=== PATIENT | female | born 1980 | race Caucasian/White ===

== ENCOUNTER 2019-11-04 14:27 | Emergency (ER) | payer OTHER, SELFPAY ==
--- NOTE | ~2019-11-04 | XR_ITS ---
EXAMINATION: XR hand RT min 3V INDICATION: Right second finger pain, initial encounter TECHNIQUE: Three views of the right hand are obtained. COMPARISON: None available FINDINGS: There is traumatic amputation of the distal soft tissues of the second finger distal to the distal phalanx. On the PA view, there appears to be a tiny fracture at the medial margin of the dist al tuft. The joint spaces are normal. No additional osseous findings are evident. IMPRESSION: 1. Soft tissue defect of the distal second finger with possible tiny open fracture of the tuft. Reviewed, dictated and finalized at location A. IMPRESSION: 1. Soft tissue defect of the distal second finger with possible tiny open fract ure of the tuft.
[2019-11-04 14:30] VITALS: BP 178/93; PULSE 100; RESP 22; TEMP 36.7; O2SAT 96
--- NOTE | 2019-11-04 14:32 | ED.ANIMALBIT ---
HPI - Animal Bite General Chief Complaint: Animal Bite Stated Complaint: Fingertip bitten off Time Seen by Provider: 11/04/19 14:32 Source: patient Mode of arrival: ambulatory Limitations: no limitations History of Present Illness HPI narrative: 39-year-old woman comes in today complaining of a dog bite to right index finger. Patient states that she was helping the dog and went to pet him and he bit the tip of her index finger off. This happened approximately 30 minutes prior to arrival. 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 Patient's last tetanus vaccine was 07/2012. complaint: animal bite Onset (ago): minute(s) (30) Animal: dog Description of animal: household pet and immunizations UTD Mechanism: bite Location: other (hand) Location - Extremities: Right: hand (index finger) Pain description: sharp Context: other (While petting dog) Treatments prior to arrival: wound dressing(s) Related Data Patient tetanus UTD: No Home Medications Medication Instructions Recorded Confirmed melatonin 5 mg PO HS PRN 11/04/19 11/04/19 metoprolol succinate 25 mg PO DAILY 11/04/19 11/04/19 venlafaxine [Effexor XR] 150 mg PO DAILY 11/04/19 11/04/19 Allergies Allergy/AdvReac Type Severity Reaction Status Date / Time No Known Allergies Allergy Unverified 03/22/18 15:32 Review of Systems Constitutional: Constitutional: Denies chills and Denies fever(s) ENT: Denies dysphagia, Denies nasal congestion and Denies sore throat Cardiovascular: Cardiovascular: Denies chest pain and Denies radiating jaw, neck or arm pain Respiratory: Respiratory: Denies chest congestion and Denies cough Gastrointestinal: Gastrointestinal: Denies abdominal pain, Denies nausea and Denies vomiting Integumentary/Breasts: Skin/Breast: Denies pruritus, Denies erythema and Denies rash Neurologic: Denies vertigo, Denies dizziness and Denies syncope Hematologic/Lymphatic: Hematologic/Lymphatic: Denies easy bleeding and Denies easy bruising Allergic/Immunologic: Allergic/Immunologic: Denies lip swelling and Denies wheezing PMFSH Past Medical History Medical History Anxiety Vaginal delivery x 3 Surgical History Surgical History H/O LEEP History of endometrial ablation History of robot-assisted laparoscopic hysterectomy History of tubal ligation Family History Family History (Updated 10/05/14 @ 09:44 by DOCTOR UNKNOWN) Father Hypertension Family history of elevated blood lipids Mother Hypertension Family history of elevated blood lipids Grandparent Diabetes mellitus Other Family history of cardiovascular disease Family history of kidney disease Family history of malignant neoplasm Social History Social History Smoking status: Light tobacco smoker Second hand tobacco smoke exposure: Yes Smoking end date: 05/18/11 Alcohol intake: never Exam Const: General: healthy appearing and alert Orientation/consciousness: patient oriented x3 Limitations: no limitations Other: Moderate acute distress HENMT: Head: normal to inspection Eyes: Conjunctivae: conjunctivae normal Pupils: Equal, round and reactive pupils present EOM: EOMs intact bilaterally Skin: General skin exam: normal color, no jaundice and no pallor Rashes: no rashes Neuro: General: patient oriented x3, moves all extremities, no focal motor deficits and CN's II-XI intact bilaterally Speech: normal speech Gait exam (Neuro): Normal gait present Extrem: General: no clubbing, cyanosis or edema Other: 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 No bone exposed. Psych: Appearance: grossly normal and well kempt Mental Status: mental status grossly normal Affect: normal affect Attitude: cooperative Thought content: Yes Normal thought content present
[2019-11-04] MEDS: TETANUS,DIPHTHERIA,AC PERTUSSIS ADULT 0.5 ML (ADACEL) IM (14:42)
[2019-11-04 15:30] VITALS: RESP 17
== END 2019-11-04 15:30 | disposition home or self-care (01) ==
PROVIDERS: Emergency Provider Emergency Medicine
DX: S68.110A Complete traumatic metacarpophalangeal amputation of right index finger, initial encounter (principal); W54.0XXA Bitten by dog, initial encounter
CPT/HCPCS: 64450; 73130; 90471; 90715; 99283

== ENCOUNTER 2019-11-06 19:29 | Emergency (ER) | payer OTHER, SELFPAY ==
--- NOTE | 2019-11-06 19:52 | ED.WOUNDLAC ---
HPI - Wound/Laceration General Chief Complaint: Wound/Laceration Stated Complaint: Infection in finger Time Seen by Provider: 11/06/19 19:40 Source: patient Mode of arrival: ambulatory Limitations: no limitations History of Present Illness HPI narrative: 39-year-old woman comes in today complaining of pus draining from her dog bite wound on her right index finger. She noticed the pus today. It is dynamo tender and worse with movement and palpation. The pus was yellow and pink. She denies nausea, vomiting, night sweats, chills, red streaks, and asplenia. On the day of the injury x-ray showed minimal of any injury to the tuft of the distal phalanx, amputation of the distal finger at the level of the lunula, and a laceration on the dorsal aspect over the DIP. Wound was cleansed, had Surgicel placed on at this time the bleeding and was wrapped after digital block. her tetanus is updated. Onset (ago): hour(s) (2) Location: other ( Tip of right index finger) Place: home Context: other (dog bite) Related Data Home Medications Medication Instructions Recorded Confirmed melatonin 5 mg PO HS PRN 11/04/19 11/06/19 metoprolol succinate 25 mg PO DAILY 11/04/19 11/06/19 venlafaxine [Effexor XR] 150 mg PO DAILY 11/04/19 11/06/19 Allergies Allergy/AdvReac Type Severity Reaction Status Date / Time No Known Allergies Allergy Unverified 03/22/18 15:32 Review of Systems Constitutional: Constitutional: Denies chills, Denies fever(s) and Denies weakness Gastrointestinal: Gastrointestinal: Denies nausea and Denies vomiting Musculoskeletal: Musculoskeletal: Reports arthralgias Integumentary/Breasts: Skin/Breast: Denies pruritus, Denies erythema and Denies rash Neurologic: Denies focal weakness and Denies numbness Hematologic/Lymphatic: Hematologic/Lymphatic: Denies easy bleeding and Denies easy bruising PMFSH Family History Family History (Updated 10/05/14 @ 09:44 by DOCTOR UNKNOWN) Father Hypertension Family history of elevated blood lipids Mother Hypertension Family history of elevated blood lipids Grandparent Diabetes mellitus Other Family history of cardiovascular disease Family history of kidney disease Family history of malignant neoplasm Social History Social History Smoking status: Light tobacco smoker Second hand tobacco smoke exposure: Yes Smoking end date: 05/18/11 Alcohol intake: never Exam Const: Other: Mild acute distress HENMT: Head: normal to inspection Skin: General skin exam: normal color, no jaundice and no pallor Rashes: no rashes Other: As the dressing was removed from around the DIP there was a small amount of yellow thick purulent material which was cultured. A scant amount drained from the dorsal wound. There was no erythema, necrosis, or warmth. There is modest swelling to the finger at and distal to the PIP. There is no tenderness or swelling with inspection and palpation of the flexor and extensor tendons proximal to the PIP. Neuro: General: patient oriented x3, moves all extremities, no focal motor deficits and CN's II-XI intact bilaterally Speech: normal speech Extrem: General: normal to inspection and no clubbing, cyanosis or edema Psych: Appearance: grossly normal and well kempt Mental Status: mental status grossly normal Affect: normal affect Attitude: cooperative Thought content: Yes Normal thought content present Course Course Emergency Course: All of dressing was cut away except for the portion at the very end of the finger to enable inspection. Some of the dressing was soaked in sterile saline. The wound and remaining dressing was cleansed with Hibiclens and rewrapped. Clindamycin was added to her regimen in order to broaden anaerobic coverage and coverage for Capnocytophaga spp. Vital Signs Vital signs: Vital Signs Temperature 36.9 C 11/06/19 19:55 Pulse Rate 78 06
[2019-11-06 19:55] VITALS: BP 141/90; PULSE 78; RESP 18; TEMP 36.9; O2SAT 97
[2019-11-06] MEDS: CLINDAMYCIN HCL 150 MG CAP 300 MG PO (20:48)
[2019-11-06 20:59] VITALS: RESP 18; O2SAT 98
== END 2019-11-06 20:58 | disposition home or self-care (01) ==
PROVIDERS: Emergency Provider Emergency Medicine; PCP Family Medicine
DX: S68.110A Complete traumatic metacarpophalangeal amputation of right index finger, initial encounter (principal); L08.9 Local infection of the skin and subcutaneous tissue, unspecified
CPT/HCPCS: 87070; 87075; 87205; 99283; A9270

== ENCOUNTER 2019-12-26 13:01 | Outpatient (RCR) | payer OTHER, SELFPAY ==
--- NOTE | 2019-12-26 12:42 | OTOPEVAL ---
Thank you for referring Sonja Diaz to [facility]. Please review, sign, date and return this plan of care ALMA. I agree with and certify that the following plan of care is medically necessary. Referring Physician Date Admitting Provider: Attending Provider: Mason Brooks MD Referring Provider: *OT Outpatient Evaluation Start: 12/26/19 10:59 Freq: Status: Active Protocol: Document 12/26/19 10:59 [facility] (Rec: 12/26/19 11:26 [facility] [id number]) Therapy Assessment Status Assessment Status Assessment Status Evaluation Outpatient Past Medical History Cardiovascular History Hx Other Cardiac Disorders Yes: TACHYCARDIA Reproductive History Hx Hysterectomy Yes Psychosocial History Hx Anxiety Yes Hx Depression Yes Evaluation Information Problem Diagnosis R hand weakness & paresthesia Onset 11/04/19 Cause dog bite Subjective Information Patient reports that the tip Query Text:As Reported By Patient/ of her R index finger was bit Family off by a dog. Patient did not have any surgical intervention. Patient reports numbness and sensitivity on the tip of her R finger as well as decreased strength. Patient reports that it is painful to touch or use her right index finger. 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 Diagnostic Tests X-Rays For This Problem Yes Prior Level of Function Activity Level (Last 3 Months) Hand Dominance Right Activity of Daily Living Ability Independent Indoor/Home Mobility Independent Community Mobility Independent Stairs Ability Independent Functional Cognition (Planning, Shopping Independent , Taking Medications) Cooking Yes Cleaning Yes Laundry Yes Shopping Yes Driving Yes Home Setting Home Type House Living Situation With Minor Child Mobility Assistive Devices (Used Last 3 None Months) Pain Assessment Timing of Pain Assessment Timing of Pain Assessment Assessment Pain Scale Pain Scale Used Numeric (1 - 10) Self Report Pain Assessment Right Finger, Index Reported Pain Level 0 Additional Pain Comments 4/5 when touching objects Pain Score Pa
--- NOTE | 2020-01-30 11:14 | PCOTNOTE ---
OT UPDATE ON [facility] 01/30/20 Subjective:Patient reports that she is able to use her right index finger more. She also reports that the tip of the finger continues to be numb and sensitive, specifically when she hits it on something unexpectedly or bumps is. Patient reports no pain at rest. 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 Patient demonstrates increased ROM of the R PIP/DIP as well as decreased pain and increased function and strength. Patient has been issued home programming and reports/demonstrates independence. Patient continues to have sensitivity and numbness at the tip of the finger only. Patient to continue skilled OT services for 1 additional session. Plan: Patient has 1 additional OT visit on POC. Thanks, Lesly Lee OTR/L
== END 2020-02-15 16:34 | disposition home or self-care (01) ==
LOC: CHSOT 13:01
PROVIDERS: PCP Family Medicine; Visit Provider Plastic Surgery
DX: R53.1 Weakness (principal); R20.2 Paresthesia of skin; Z89.021 Acquired absence of right finger(s)
CPT/HCPCS: 97110; 97140; 97165

== ENCOUNTER 2020-10-17 15:00 | Outpatient (RCR) | payer OTHER, SELFPAY ==
--- NOTE | 2020-08-22 09:57 | OTOPEVAL ---
OCCUPATIONAL THERAPY INITIAL EVALUATION 08/22/20 Sonja is a 40 year-old, right handed female who is ~9 months s/p right index finger tip amputation. The soft tissue and nail have grown back very well. She unfortunately has some residual pain and sensitivity restricting her ability to use the right hand for ADLs. She has been instructed in desensitization, light tasks to help the finger return to habitual use, and strengthening. No treatment sessions have been scheduled as she is independent with all materials. Recommend that she follows up for a re-assessment in 1 month. Thank you for referring Sonja Diaz to [facility].? The patient is scheduled to be seen for therapy? re-evaluation in 4 weeks. No treatment sessions have been scheduled. Please review, sign, date and return this plan of care ALMA. I agree with and certify that the following plan of care is medically necessary. Referring Physician Date Referring Provider: Mason Brooks MD *OT Outpatient Evaluation Start: 08/22/20 08:36 Therapy Assessment Status Assessment Status Assessment Status Evaluation Outpatient Past Medical History Past Medical History Source of Past Medical History Patient Neurological History Hx Neurological Disorders No Significant History Cardiovascular History Hx Other Cardiac Disorders Yes: Tachycardia Respiratory History Hx Respiratory Disorders No Significant History Gastrointestinal History Hx Gastrointestinal Disorders No Significant History Genitourinary History Hx Genitourinary Disorders No Significant History Musculoskeletal History Hx Other Musculoskeletal Disorders Yes: Right IF partial amputation Hematological History Hx Hematological Disorders No Significant History Endocrine History Hx Endocrine Disorders No Significant History HEENT History Hx HEENT Disorders No Significant History Integumentary History Hx Skin Disorders No Significant History Reproductive History Hx Hysterectomy Yes Psychosocial History Hx Anxiety Yes Hx Depression Yes Pain History Has Past Pain Affected Your Daily Life Yes: Index finger Evaluation Information Problem Diagnosis Sequela of right index finger tip amputation Onset 11/04/19 Subjective Information Patient reports having OT Query Text:As Reported By Patient/ initially after the injury to Family regain ROM and they did work on desensitization, however she continues to have sensitivity on the tip of the finger, especially with reaching into her purse for objects. 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
--- NOTE | 2020-09-21 10:46 | PCOTNOTE ---
Patient called & cancelled re-evaluation this date due to breaking her foot. States she will call back to reschedule re-eval.
--- NOTE | 2020-10-17 15:41 | OTOPEVAL ---
OCCUPATIONAL THERAPY RE-EVALUATION AND D/C 10/17/20 Patient presents today for OT re-evaluation after completing index finger desensitization, strengthening, and fine motor HEP x8 weeks. Her pain has remained unchanged with moderate amounts of pain and sensitivity with index finger use, especially with tip pinching. She continues to avoid using this finger with everyday tasks and has to consciously try to use the finger. Unfortunately there has been very little progress pain and sensory-hussein. Discharging OT with goals not met. Thank you for referring Sonja Diaz to [facility]. Please review, sign, date and return this D/C Note ALMA. I agree with and certify that the following plan of care is medically necessary. Referring Physician Date Referring Provider: Mason Brooks MD *OT Outpatient Evaluation Start: 08/22/20 08:36 Evaluation Information Problem Diagnosis Sequela of right index finger tip amputation Onset 11/04/19 Additional Evaluation Detail Patient was initially evaluated on 08/22/20 for right index finger pain and sensitivity restricting her ability to use the right index finger for griping/pinching, typing, buttoning, etc. She had habitually stoped using the finger and began using the middle finger for pinching and fine motor tasks. On the initial evaluation she was instructed in desensitization, fine motor exercises, and education on learned non use and purposefully using the finger again. Regular weekly sessions were not scheduled as she was independent with all materials at the evaluation. The re-evaluation had to be rescheduled due to her breaking her foot. Today is 8 weeks since the initial evaluation. Patient reports good compliance with HEP. Subjective Information Patient reports since our Query Text:As Reported By Patient/ initial therapy evaluation she Family has been working on desensitizing, functional use, and strengthening. She feels as though the sensitivity has not changed. She has a variety of objects she has been using
== END 2020-10-18 10:55 | disposition home or self-care (01) ==
LOC: ANHOT 15:00
PROVIDERS: PCP Family Medicine; Visit Provider Plastic Surgery
DX: Z47.81 Encounter for orthopedic aftercare following surgical amputation (principal); Z89.021 Acquired absence of right finger(s)
CPT/HCPCS: 97110; 97165; 97530

== ENCOUNTER 2021-02-06 00:37 | Day surgery (SDC) | payer OTHER, SELFPAY ==
[2021-01-29 13:20] VITALS: BMI 22.6
[2021-02-06] VITALS (9 sets, daily range): BP systolic 106–116; BP diastolic 65–77; PULSE 75–104; RESP 14–16; TEMP 36.6; O2SAT 98–100; BMI 22.8
--- NOTE | 2021-02-06 07:09 | WPDHPUPDATE1 ---
History and Physical Update Update Date/Time: 02/06/21 07:09 History and Physical has been reviewed, including an updated exam of the patient. There are NO changes in the patient's condition. Risks, benefits, and alternatives have been discussed and questions answered. Patient agrees to proceed with procedure.
[2021-02-06] MEDS: LIDO 1%/EPINEPHRINE 1:100,000 50 ML VIAL INFILTRATE (15:16)
[2021-02-06] MEDS: BACITRACIN OINTMENT 15 GM TUBE 1 APPLIC TOPICAL (15:17)
--- NOTE | 2021-02-06 15:26 | SUR.OPER ---
Ebl=0
--- NOTE | 2021-02-06 15:58 | W.PM.PROC2 ---
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 The patient was taken to the operating room placed supine on the operating table. Time-out was held and confirmed. The right hand and left foot were prepped and draped in usual fashion. The left 3rd toe and the right index finger were anesthetized with 1% lidocaine with epinephrine as intrathecal block. The finger tip was carefully examined. The general problem appeared to be due to pinching and hooking of the nail bed and nail that occurred as a result of secondary healing of this tip amputation that occurred from dog bite about 1 year ago. The red tourniquet was applied to the finger. The wound was reopened with an incision transversely just palmar to the hyponychium. The wound was reopened by undermining over the remaining distal phalanx. The nail bed was released from the dorsal phalanx. This increased the dimensions of the wound about 2 mm in width and approximately 6 mm of vertically. The site was measured and the numbers transposed to the left 3rd toe. A similar size piece of full-thickness skin and subcutaneous tissue was removed from the tip of the left 3rd toe. That wound was closed with interrupted 5 0 nylon. The graft was was not thinned in any way. It was inset and sutured with interrupted 5 0 nylon. It appeared that curving of the nail bed was potentially corrected as long as the graft would support it. Antibiotic ointment and Band-Aids were applied to both sites. Patient is discharged home with instructions in wound care and follow-up. She has a prescription for cephalexin and hydrocodone. Estimated Blood Loss 0 Drains No Packing No Pathology none sent Complications No immediate complications Condition stable Disposition same day
== END 2021-02-06 16:05 | disposition home or self-care (01) ==
PROVIDERS: PCP Family Medicine; Visit Provider Plastic Surgery
PROC: (CPT 15240; principal; 2021-02-06 15:00)
DX: L60.8 Other nail disorders (principal)
CPT/HCPCS: 15240; A9270

== ENCOUNTER 2021-07-19 12:40 | Emergency (ER) | payer OTHER, SELFPAY ==
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
[2021-07-19 13:06] VITALS: BP 124/80; PULSE 81; RESP 18; TEMP 37.1; O2SAT 100
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
== END 2021-07-19 16:45 | disposition home or self-care (01) ==
LOC: ANHED 16:55
PROVIDERS: Emergency Provider Emergency Medicine; PCP Family Medicine
DX: S89.92XA Unspecified injury of left lower leg, initial encounter (principal); F41.9 Anxiety disorder, unspecified; F32.A Depression, unspecified; F17.210 Nicotine dependence, cigarettes, uncomplicated; V49.40XA Driver injured in collision with unspecified motor vehicles in traffic accident, initial encounter
CPT/HCPCS: 73502; 73562; 99284

== ENCOUNTER 2025-04-05 10:32 | Emergency (ER) | payer OTHER, SELFPAY ==
--- OUTSIDE RECORDS SUMMARY | 2024-12-29 10:15 | XMS_ITS ---
Author Organization [facility] [employer] Address [facility] [facility] [address] [place] [address] Care Team Providers Care Director Of Corporate Sales Name Role Phone Evette KING, Christine Primary Care Provider Unavaila Andrea Schaffer Unavailable [phone] REASON FOR VISIT 3 month f/u Social History Sex Assigned At : Social History Observation Description Sex Assigned At Female Encounters Encounter Location Date Provider Diagnosis [facility] [employer] [place] [id number] [facility] [address] [facility] [address] [place] [address] 12/29/2024 Andrea Ribeiro Plan Of Treatment No Information Progress Notes * FRANCHESKA DE LA CRUZB: 9[birth year] (45 yo F)Acc No.[id number]:12/29/2024 Patient: CAPRI EVANS Provider: Jack RIBEIRO MD :1980 A ge:44 Y S ex:Female Date:12/29/2024 Address:[address] [place], [place] [id number] Pcp:Christine Alas NP Subjective: * Chief Complaints: * 3 month f/u * Active Problem List F90.9 Attention-deficit hy peractivity disorder, unspecified type Onset Date:08/13/2023Modified On:11/11/2023W/U Status:confirmed F41.1 Generalized anxiety disorder Onset Date:08/13/2023Modified On:11/11/2023W/U Status:confirmed F51.01 Primary insomnia Onset Date:08/13/2023Modified On:11/11/2023W/U Status:confirmed F33.1 Major depressive dis order, recurrent, moderate Modified On:12/29/2024/U Status:confirmed G93.32 Fatigue, chronic, sy ndrome Modified On:02/08/2025U Status:confirmed * Electronic signature of Yanira Ribeiro MD on 04/05/2025 at 03:16 PM MANAGER SALES Sign off status: Pending * Provider: Jack RIBEIRO MD Date: 0 12/29/2024 Generated for Velia dunn/Aj/Dalilaitting on: 06/05/2024 03:16 PM MANAGER SALES
--- NOTE | 2025-04-05 10:36 | ED_ITS ---
HPI - URI/Sore Throat General Chief Complaint: Upper Respiratory Infection Stated Complaint: sinus/URI Time Seen by Provider: 04/05/25 10:36 Source: patient Mode of arrival: ambulatory Limitations: no limitations History of Present Illness HPI Narrative: Ivana is a 45-year-old female patient presenting to the clinic today with complaints of nasal congestion, sinus headache, cough, nausea, body aches, feeling weak, and dizziness x 2 days Rates pain 5/10. Denies any sore throat. She reports has taken Aleve and Sudafed for her symptoms. Denies any chest pain or shortness of breath. Related Data Home Medications ?Medication ?Instructions ?Recorded ?Confirmed ?Last Taken ?Type trazodone 100 mg tablet 100 mg PO QHS PRN Insomnia 0 11/13/20 01/29/21 Unknown History vilazodone 40 mg tablet (Viibryd) 40 mg PO DAILY 01/30 Unknown History dextroamphetamine-amphetamine 10 10 mg PO DAILY Unknown History mg tablet (Adderall) atomoxetine 25 mg capsule mg PO 04/05/25 Unknown Hist ory Allergies Allergy/AdvReac Type Severity Reaction Status Date / Time No Known Allergies Allergy Verified 04/05/25 10:51 Review of Systems Review of Systems: Pertinent positives per HPI. Patient denies any fever, chills, rash, headache, visual changes, dizziness, cough, shortness of breath, chest pain, palpitations, nausea, vomiting, diarrhea, constipation, abdominal pain, or any urinary issues. PMFSH Past Medical History Medical History History of anesthesia problem Depression Wears glasses Unintentional weight loss Fracture of toe of left foot Endometriosis determined by laparoscopy 05-30-15, surgery to remove History of abnormal cervical Pap smear Tachycardia Cigarette nicotine dependence Anxiety Vaginal delivery x 3 Surgical History Surgical History History of cholecystectomy History of bilateral salpingectomy 03-31-18 History of robot-assisted laparoscopic hysterectomy 03-31-18 History of tubal ligation 05-30-15 H/O LEEP History of endometrial ablation 05-30-15 Family History Family History Father Hypertension Family history of elevated blood lipids Mother Hypertension Family history of elevated blood lipids Grandparent Diabetes mellitus Other Family history of cardiovascular disease Family history of kidney disease Family history of malignant neoplasm Heart disease Lung disease Ovarian cancer Social History Social History Smoking packs per day: 0.5 Smoking cigarettes per day: 10.0 Years smoked: 20 Smoking pack-years: 10.00 Smoking status: Current every day smoker Tobacco type: cigarettes Additional smoking assessment comments: trying to quit. She is down to 2a day for approx 3wks now-as of 09/26/20 Alcohol intake: current Alcohol use details: approx 6 per month Living arrangements: with family Occupation/Education: occupation Additional occupation/education comments: [employer] Gender identity (if verbalized by the patient): Female Spiritual care concerns: No Comments At the time of my signature, I reviewed and agree with the nursing past medical, surgical, social, and family history. There is no relevant family history pertinent to the patient complaint. Exam Narrative: General: Well-developed, well nourished, in no apparent distress Head: Normocephalic, atraumatic Eyes: Pupils equally round and reactive to light bilaterally, EOM intact, sclera and conjunctive clear, no discharge, lids normal Ears: TMs intact and congested, ear canals clear, no drainage, grossly hearing normal. Nose: Nares patent, clear nasal discharge, no inflammation, no sinus tenderness. Mouth: Oral pharynx without lesions or masses, good dentition, MMM. Neck: Supple, trachea midline, no enlargement of anterior or posterior cervical nodes, no thyroid masses or goiter palpable. Cardio: Regular rate and rhythm, s1 and s2 normal, no murmur appreciated. Resp: Clear to auscultation bilaterally, no rhonchi, rales, wheezing or rubs Course Course Emergency Course: Portions of this record may have been created with voice recognition software. Level of Care: Express Care Visit Vital Signs Vital signs: Vital Signs Temperature 36.4 C 04/05/25 10:43 Pulse Rate 97 04/05/25 10:43 Respiratory Rate 18 04/05/25 10:43 Blood Pressure 111/92 H 04/05/25 10:43 Pulse Oximetry 100 04/05/25 10:43 Oxygen Delivery Room Air 04/05/25 10:43 Temperature 36.4 C 04/05/25 10:43 Pulse Rate 97 04/05/25 10:43 Respiratory Rate 18 04/05/25 10:43 Blood Pressure 111/92 H 04/05/25 10:43 Pulse Oximetry 100 04/05/25 10:43 Oxygen Delivery Room Air 04/05/25 10:43 Vital signs reviewed MDM - URI/Sore Throat MDM Narrative Medical decision making narrative: At the time of visit patient is resting comfortably on the exam table. Patient appears to be nontoxic. Complaints of nasal congestion, sinus headache, cough, nausea, body aches, feeling weak, and dizziness x 2 days Rates pain 5/10. Denies any sore throat. She reports has taken Aleve and Sudafed for her symptoms. Denies any chest pain or shortness of breath. On exam patient has bilateral TMs intact and congested, clear nasal drainage, mild anterior turbinate inflammation, oropharynx normal, no cervical lymphadenopathy, lung sounds are clear, heart rates regular rate rhythm, vital signs stable. COVID and influenza testing was ordered Labs: COVID and influenza testing was performed and negative in the clinic today. Plan: I suspect patient has URI/viral syndrome. No sign of bacterial infection in the clinic today. Work note was given. Supportive measures were discussed with the patient and they voiced understanding discharge instructions and agrees to treatment plan. Return precautions reviewed Differential Diagnosis Differential diagnosis: Likely upper respiratory infection, otitis media, sinusitis, viral infection, bronchitis, influenza, pharyngitis and other (COVID) Discharge Plan Discharge Clinical Impression: Acute viral syndrome URI (upper respiratory infection) Qualifiers: URI type: unspecified URI Qualified Code(s): J06.9 - Acute upper respiratory infection, unspecified Patient Disposition: Home Condition: Stable Instructions: Antibiotic Form, Viral Syndrome (ED), Cold Symptoms (ED) Additional Instructions: Covid and influenza testing was negative in the clinic today. Increase fluids and stay well hydrated May take Tylenol or motrin as directed on bottle for pain/fever May use Flonase 1 spray in each nare daily May take OTC antihistamines such as Zyrtec or Claritin daily as directed on bottle May apply Vicks vapor rub to chest to open sinuses Sinus rinses for congestion Cepacol spray, cough drops, throat lozenges, warm tea with honey/lemon, gargle salt water to soothe throat BRAT diet for diarrhea Clear liquids x 24 hours then advance as tolerated for nausea/vomiting Go to the ED if you develop a worsening in your condition- high fever not controlled by Tylenol or Motrin, dehydration, weakness, lethargy, shortness of breath, or chest pain. Follow up with your PCP in 3-5 days if symptoms persist. Patient Language: Moldovan Prescriptions: No Action atomoxetine 25 mg capsule PO trazodone 100 mg tablet 100 mg PO QHS PRN (Reason: Insomnia) vilazodone [Viibryd] 40 mg tablet 40 mg PO DAILY Rx Instructions: must administer with a meal/food dextroamphetamine-amphetamine [Adderall] 10 mg tablet 10 mg PO DAILY metoprolol tartrate 25 mg tablet 25 mg PO DAILY PRN (Reason: tachycardia) Qty: 90 3RF metoprolol succinate 25 mg tablet extended release 24 hr See Rx Instructions .ROUTE .COMPLEX Qty: 90 2RF Dose Instruction: TAKE 1 TABLET BY MOUTH DAILY Rx Instructions: TAKE 1 TABLET BY MOUTH DAILY Follow-up/Referrals: Valdez Santa DO [Primary Care Provider, Family Practice] Stand Alone Forms: Work/School Release IP Time of Disposition: 11:10 Quality NIHSS Nursing Documentation ED NIHSS nursing documentation: reviewed/agree
[2025-04-05 10:43] VITALS: BP 111/92; PULSE 97; RESP 18; TEMP 36.4; O2SAT 100
[2025-04-05 11:15] LABS: EDCOVIDSCREEN Negative (Negative); EDINFLUASCREEN Negative (Negative); EDINFLUBSCREEN Negative (Negative)
--- OUTSIDE RECORDS SUMMARY | 2025-04-05 15:14 | XMS_ITS | Encounter Summary ---
Author Organization [facility] Address 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
--- OUTSIDE RECORDS SUMMARY | 2025-04-05 15:14 | XMS_ITS | Encounter Summary ---
Author Organization [facility] Address [address] [place] [address] Care Team Providers Care Data Security Analyst Name Role Phone Otoniel Amaya MD Primary Care Provider [phone] Encounter Details Date Type Department Care Team (Late st Contact Info) Description 04/27/2006 Outpatient Historical [facility] Primary Care - [place] 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
--- OUTSIDE RECORDS SUMMARY | 2025-04-05 15:14 | XMS_ITS | Encounter Summary ---
Author Organization [facility] Address [address] [place] [address] Care Team Providers Care Teaching Fellow Name Role Phone Otoniel Amaya MD Primary Care Provider [phone] Encounter Details Date Type Department Care Team (Late st Contact Info) Description 05/29/2006 Outpatient Historical [facility] Primary Care - [place] [address] [facility] [place] [place] [address] Martin Pacheco, DO * Social History Tobacco Use Types Packs/Day Years Used Date Smoking Tobacco: Never Assessed Comments Unknown Sex and Gender Information Value Date Recorded Sex Assigned at Not on file Legal Sex Female 3:02 AM WOUND NURSE Gender Identity Not on file Sexual Orientation Not on file documented as of this encounter Plan of Treatment Not on file documented as of this encounter Visit Diagnoses Not on filedocumented in this encounter Care Teams Teaching Fellow Relationship Specialty Start Date End Date Otoniel Amaya MD [address] [facility] [address] [place] [address] PCP - General 01/09/09 documented as of this encounter
--- OUTSIDE RECORDS SUMMARY | 2025-04-05 15:14 | XMS_ITS | Encounter Summary ---
Author Organization [facility] Address [address] [place] [address] Care Team Providers Care Air Export Coordinator Name Role Phone Otoniel Amaya MD Primary Care Provider [phone] Encounter Details Date Type Department Care Team (Late st Contact Info) Description 01/15/2005 Outpatient Historical [facility] Primary Care - [place] [address] [facility] [place] [address] Martin Pacheco, DO * Social History Tobacco Use Types Packs/Day Years Used Date Smoking Tobacco: Never Assessed Comments Unknown Sex and Gender Information Value Date Recorded Sex Assigned at Not on file Legal Sex Female 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
--- OUTSIDE RECORDS SUMMARY | 2025-04-05 15:14 | XMS_ITS | Clinical Summary ---
Author Organization [facility] Address [address] [place] [address] Phone Care Team Providers Care Business Center Attendant Name Role Phone Otoniel Amaya MD Primary Care Provider [phone] Allergies No known active allergies Medications ALPRAZolam (XANAX) 0.25 mg Oral tablet Take 1 Tab by mouth nightly as needed for Anxiety. 20 Tab 0 10/03/2011 Active escitalopram (LEXAPRO) 10 mg tabletIndicatio ns:Major depression,Gene ralized anxiety disorder Take 1 Tab by mouth daily. 30 Tab 6 10/04/2013 Active busPIRone (BUSPAR) 15 mg TabletIndicatio ns:Generalized anxiety disorder Take 1 Tab by mouth 2 times daily. 60 Tab 0 10/07/2013 Active Active Problems Problem Noted Date Diagnosed Date Generalized anxiety disorder 02/13/2009 Social History Tobacco Use Types Packs/Day Years Used Date Smoking Tobacco: Every Day Smokeless Tobacco: Never Alcohol Use Standard Drinks/Week Comments Yes 0 (1 standard drink = 0.6 oz pur e alcohol) Comments No Sex and Gender Information Value Date Recorded Sex Assigned at Not on file Legal Sex Female 3:02 AM ROOFING SALES REPRESENTATIVE Gender Identity Not on file Sexual Orientation Not on file Last Filed Vital Signs Vital Sign Reading Time Taken Comments Blood Pressure 122/70 05/28/2013 9:26 AM ROOFING SALES REPRESENTATIVE Pulse 82 05/28/2013 9:26 AM ROOFING SALES REPRESENTATIVE Temperature 36.8 C (98.3 F) 05/28/2013 9:26 AM ROOFING SALES REPRESENTATIVE Respiratory Rate 16 10/06/2011 11:13 AM CDT Oxygen Saturation - - Inhaled Oxygen Concentration - - Weight 65 kg (143 lb 6.4 oz) 05/28/2013 9:26 AM ROOFING SALES REPRESENTATIVE Height 167.6 cm (5' 6) 05/28/2013 9:26 AM ROOFING SALES REPRESENTATIVE Body Mass Index 23.15 05/28/2013 9:26 AM ROOFING SALES REPRESENTATIVE Plan of Treatment Health Maintenance Due Date Last Done Comments DTAP/TDAP/TD VACCINES (1 - Tdap) 02/23/2000 HEPATITIS B VACCINES (1 of 3 - 19+ 3-dose series) 12/1999 HPV/Cotest (21-29) 2002 HPV VACCINES (1 - 3-dose SCDM series) 02/23/2008 CERVICAL CANCER SCREENING 2011 HPV/Cotest (30-65) 2011 PAP SMEAR 2011 BREAST CANCER SCREENING 2021 Preventative Visit- Commercial 05/18/2024 11/15/2003 INFLUENZA VACCINE (#1) 2024 Insurance [employer] Care Teams Business Center Attendant Relationship Specialty Start Date End Date Otoniel Amaya MD [address] [facility] [address] [place] [address] PCP - General 01/09/09
--- OUTSIDE RECORDS SUMMARY | 2025-04-05 15:14 | XMS_ITS | Encounter Summary ---
Author Organization [facility] Address 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
--- OUTSIDE RECORDS SUMMARY | 2025-04-05 15:14 | XMS_ITS | Encounter Summary ---
Author Organization [facility] Address [address] [place] [address] Care Team Providers Care Pneumatic Riveter Name Role Phone Otoniel Amaya MD Primary Care Provider [phone] Encounter Details Date Type Department Care Team (Late st Contact Info) Description 03/26/2006 Outpatient Historical [facility] Primary Care - [place] [address] [facility] [place] [address] Martin Pacheco, DO * Social History Tobacco Use Types Packs/Day Years Used Date Smoking Tobacco: Never Assessed Comments Unknown Sex and Gender Information Value Date Recorded Sex Assigned at Not on file Legal Sex Female 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
--- OUTSIDE RECORDS SUMMARY | 2025-04-05 15:14 | XMS_ITS | Clinical Summary ---
Author Organization [facility] Address [address] [place] [address] Care Team Providers Care Paper And Pulp Mill Operator Name Role Phone ChristaloveValdezh Primary Care Provider Allergies No known active allergies Medications venlafaxine XR (EFFEXOR-XR) 150 mg 24 hr capsule Take 150 mg by mouth daily 10/29/2020 Active metoprolol tartrate (LOPRESSOR) 25 mg immediate release tablet as needed 11/13/2020 Acti ve traZODone (DESYREL) 100 mg tablet nightly 11/09/2020 Active metoprolol XL (TOPROL-XL) 25 mg extended release tabletIndicatio ns:Other cardiac arrhythmia Take 0.5 tablets (12.5 mg total) by mouth daily 11/14/2020 Active ivabradine (CORLANOR) 5 mg tabletIndicatio ns:chronic heart failure Take 1 tablet (5 mg total) by mouth 2 (two) times a day 180 tablet 2 02/04/2021 Active Active Problems Problem Noted Date Diagnosed Date Arrhythmia 11/14/2020 Inappropriate sinus tachycardia 11/14/2020 Shortened DE interval 11/14/2020 Surgical History Surgery Date Site/Laterality Comments HYSTERECTOMY CHOLECYSTECTOMY TUBAL LIGATION Medical History Medical History Date Comments GERD (gastroesophageal reflux disease) Anxiety and depression Inappropriate sinus tachycardia Low blood pressure Family History Medical History Relation Name Comments Cardiomyopathy Father Heart disease Father Hyperlipidemia Father Hypertension Father Pacemaker Father Sudden Cardiac Father Tachyarrhythmia Father Diabetes Maternal Grandfather Diabetes Mother Heart disease Mother Hyperlipidemia Mother Hypertension Mother Hyperlipidemia Sister 1 Hypertension Sister 1 POTS Sister 1 Two sisters who have POTS, hypertension, high cholesterol, PCOS and rheumatoid arthritis Polycystic ovary syndrome Sister 1 Hyperlipidemia Sister 2 Hypertension Sister 2 Rheumatoid arthritis Sister 2 Relation Name Status Comments Father (Age 68) Maternal Grandfather Mother Alive Sister 1 Alive Sister 2 Alive Social History Tobacco Use Types Packs/Day Years Used Date Smoking Tobacco: Every Day Cigarettes Smokeless Tobacco: Never Personal Safety Answer Date Recorded Getting School Help Needed Not on file 07/11 Comments Unknown Sex and Gender Information Value Date Recorded Sex Assigned at Not on file Legal Sex Female 10:33 AM HYSTER DRIVER Gender Identity Not on file Sexual Orientation Not on file Last Filed Vital Signs Vital Sign Reading Time Taken Comments Blood Pressure 96/80 11/14/2020 1:23 PM CDT Pulse 98 11/14/2020 1:23 PM CDT Temperature 36.6 C (97.8 F) 08/30/2020 5:39 PM CDT Respiratory Rate - - Oxygen Saturation 97% 11/14/2020 1:23 PM CDT Inhaled Oxygen Concentration - - Weight 63.5 kg (140 lb) 11/14/2020 1:23 PM CDT Height 167.6 cm (5' 6) 11/14/2020 1:23 PM CDT Body Mass Index 22.6 11/14/2020 1:23 PM CDT Plan of Treatment Not on file Insurance [employer] [facility] [employer] [employer]ANS Address: [facility] [address] [place] [address] Care Teams Paper And Pulp Mill Operator Relationship Specialty Start Date End Date Valdez Santa DO [address] [place] [address] PCP - General 09/05/20
--- OUTSIDE RECORDS SUMMARY | 2025-04-05 15:14 | XMS_ITS | Encounter Summary ---
Author Organization [facility] Address [address] [place] [address] Care Team Providers Care Porcelain Mixer Name Role Phone Otoniel Amaya MD Primary Care Provider [phone] Encounter Details Date Type Department Care Team (Late st Contact Info) Description 02/17/2005 Outpatient Historical [facility] Primary Care - [place] [address] [facility] [phone] Martin Pacheco, DO * Social History Tobacco Use Types Packs/Day Years Used Date Smoking Tobacco: Never Assessed Comments Unknown Sex and Gender Information Value Date Recorded Sex Assigned at Not on file Legal Sex Female 3:02 AM RECREATION SUPERVISOR Gender Identity Not on file Sexual Orientation Not on file documented as of this encounter Plan of Treatment Not on file documented as of this encounter Visit Diagnoses Not on filedocumented in this encounter Care Teams Porcelain Mixer Relationship Specialty Start Date End Date Otoniel Amaya MD [address] [facility] [address] [place] [address] PCP - General 01/09/09 documented as of this encounter
--- OUTSIDE RECORDS SUMMARY | 2025-04-05 15:14 | XMS_ITS | Encounter Summary ---
Author Organization [facility] Address [address] [place] [address] Care Team Providers Care Glassware Finisher Name Role Phone Otoniel Amaya MD Primary Care Provider [phone] Encounter Details Date Type Department Care Team (Late st Contact Info) Description 01/07/2006 Outpatient [facility] Primary Care [address] [phone] Martin Pacheco, DO * Social History Tobacco Use Types Packs/Day Years Used Date Smoking Tobacco: Never Assessed Comments Unknown Sex and Gender Information Value Date Recorded Sex Assigned at Not on file Legal Sex Female 3:02 AM PROGRESS CLERK Gender Identity Not on file Sexual Orientation Not on file documented as of this encounter Plan of Treatment Not on file documented as of this encounter Procedures Procedure Name Priority Date/Time Associated Diagnosis Comments HELICOBACTER PYLORI IGM Routine 01/07/2006 7:21 PM CDT HELICOBACTER PYLORI IGG Routine 01/07/2006 7:21 PM CDT documented in this encounter Results * HELICOBACTER PYLORI IGM (01/07/2006 7:21 PM CDT) H. PYLORI IGM Negative Negative INTERF PONCHO SYSTEM H. PYLORI IGM INDEX 0.4 <0.8 Index INTERFACE SYSTEM Comment: Reference Range: <0.8 Negative 0.8-0.9 Equivocal >0.9 Positive H. pylori serology may result in false positives, especially in isolated IgM H. pylori positive patients. A Urea Breath test or stool antigen test for H. pylori should be considered if clinically indicated. This test was developed and its performance characteristics have been determined by [facility] [place], [place]. It has not been cleared or approved by the U.S. Food and Drug Administration. The FDA has determined that such clearance or approval is not necessary. Performance characteristics refer to the analytical performance of the test. Lab test performed by: [facility] [id number] [place], [place] KRISTIN WHATLEY MD 01/07/2006 7:21 PM CDT Historical Provider CHEMISTRY ORDERABLES Final R esult Performing Organization Address City/[facility] Co de Phone Number INTERFACE SYSTEM Refer to clinic/hospital department * HELICOBACTER PYLORI IGG (01/07/2006 7:21 PM CDT) H. PYLORI IGG <0.91 EIA Value INTERF PONCHO SYSTEM Comment: REFERENCE RANGE: < 0.91 NEGATIVE: NO HELICOBACTER PYLORI IGG ANTIBODY DETECTED 0.91 - 1.09 EQUIVOCAL > 1.09 POSITIVE: HELICOBACTER PYLORI IGG ANTIBODY DETECTED A POSITIVE RESULT INDICATES THAT THE PATIENT HAS ANTIBODY TO H. PYLORI. IT DOES NOT DIFFERENTIATE BETWEEN AN ACTIVE OR PAST INFECTION. THE CLINICAL DIAGNOSIS MUST BE INTERPRETED IN CONJUNCTION WITH THE CLINICAL SIGNS AND SYMPTOMS OF THE PATIENT. [facility]: [facility] [id number] [place] [address] MALINDA ENGLISH MD 01/07/2006 7:21 PM CDT Historical Provider CHEMISTRY ORDERABLES COM Fin al Result INTERFACE SYSTEM Refer to clinic/hospital department documented in this encounter Visit Diagnoses Not on filedocumented in this encounter Care Teams Glassware Finisher Relationship Specialty Start Date End Date Otoniel Amaya MD [address] [facility] [address] [place] [address] PCP - General 8/25/09 documented as of this encounter
--- OUTSIDE RECORDS SUMMARY | 2025-04-05 15:15 | XMS_ITS | Encounter Summary ---
Author Organization [facility] Address [address] [place] [address] Care Team Providers Care Passenger Solicitor Name Role Phone Otoniel Amaya MD Primary Care Provider [phone] Encounter Details Date Type Department Care Team (Late st Contact Info) Description 11/12/[address] [facility] Primary Care - [place] [address] [facility] [place] [phone] Martin Pacheco, DO * Social History Tobacco Use Types Packs/Day Years Used Date Smoking Tobacco: Never Assessed Comments Unknown Sex and Gender Information Value Date Recorded Sex Assigned at Not on file Legal Sex Female 3:02 AM COMPENSATION AND BENEFITS MANAGER Gender Identity Not on file Sexual Orientation Not on file documented as of this encounter Plan of Treatment Not on file documented as of this encounter Visit Diagnoses Not on filedocumented in this encounter Care Teams Passenger Solicitor Relationship Specialty Start Date End Date Otoniel Amaya MD [address] [facility] [address] [place] [address] PCP - General 01/09/09 documented as of this encounter
--- OUTSIDE RECORDS SUMMARY | 2025-04-05 15:15 | XMS_ITS | Encounter Summary ---
Author Organization [facility] Address [address] [place] [address] Care Team Providers Care Technician Terminal And Repeater Name Role Phone Otoniel Amaya MD Primary Care Provider [phone] Encounter Details Date Type Department Care Team (Late st Contact Info) Description 08/31/2002 Outpatient Historical [facility] Primary Care - [place] [address] [facility] [phone] Martin Pacheco, DO * Social History Tobacco Use Types Packs/Day Years Used Date Smoking Tobacco: Never Assessed Comments Unknown Sex and Gender Information Value Date Recorded Sex Assigned at Not on file Legal Sex Female 3:02 AM PROFESSOR OF BIOLOGY Gender Identity Not on file Sexual Orientation Not on file documented as of this encounter Plan of Treatment Not on file documented as of this encounter Visit Diagnoses Not on filedocumented in this encounter Care Teams Technician Terminal And Repeater Relationship Specialty Start Date End Date Otoniel Amaya MD [address] [facility] [address] [place] [address] PCP - General 01/09/09 documented as of this encounter
--- OUTSIDE RECORDS SUMMARY | 2025-04-05 15:15 | XMS_ITS | Encounter Summary ---
Author Organization [facility] Address [address] [place] [address] Care Team Providers Care Figure Refinisher And Repairer Name Role Phone Otoniel Amaya MD Primary Care Provider [phone] Encounter Details Date Type Department Care Team (Late st Contact Info) Description 07/12/2004 Outpatient Historical [facility] Primary Care - [place] [address] [place] [address] Britany Wei MD NO ADDRESS ON FILE Social History Tobacco Use Types Packs/Day Years Used Date Smoking Tobacco: Never Assessed Comments Unknown Sex and Gender Information Value Date Recorded Sex Assigned at Not on file Legal Sex Female 3:02 AM CLINICAL ASST Gender Identity Not on file Sexual Orientation Not on file documented as of this encounter Plan of Treatment Not on file documented as of this encounter Visit Diagnoses Not on filedocumented in this encounter Care Teams Figure Refinisher And Repairer Relationship Specialty Start Date End Date Otoniel Amaya MD [address] [place] [address] PCP - General 01/09/09 documented as of this encounter
--- OUTSIDE RECORDS SUMMARY | 2025-04-05 15:15 | XMS_ITS | Encounter Summary ---
Author Organization [facility] Address [address] [place] [address] Care Team Providers Care Timing Machine Operator Name Role Phone Otoniel Amaya MD Primary Care Provider [phone] Encounter Details Date Type Department Care Team (Late st Contact Info) Description 01/26/2002 Outpatient Historical [facility] Primary Care - [place] [address] [facility] [place] [address] Martin Pacheco, DO * Social History Tobacco Use Types Packs/Day Years Used Date Smoking Tobacco: Never Assessed Comments Unknown Sex and Gender Information Value Date Recorded Sex Assigned at Not on file Legal Sex Female 3:02 AM RIG MANAGER Gender Identity Not on file Sexual Orientation Not on file documented as of this encounter Plan of Treatment Not on file documented as of this encounter Visit Diagnoses Not on filedocumented in this encounter Care Teams Timing Machine Operator Relationship Specialty Start Date End Date Otoniel Amaya MD [address] [facility] [address] [place] [address] PCP - General 01/09/09 documented as of this encounter
--- OUTSIDE RECORDS SUMMARY | 2025-04-05 15:15 | XMS_ITS | Encounter Summary ---
Author Organization [facility] Address [address] [place] [address] Care Team Providers Care Repair Miller Name Role Phone Otoniel Amaya MD Primary Care Provider [phone] Encounter Details Date Type Department Care Team (Late st Contact Info) Description 05/09/1999 Outpatient Historical [facility] Primary Care - [place] [address] [facility] [place] [address] Martin Pacheco, DO * Social History Tobacco Use Types Packs/Day Years Used Date Smoking Tobacco: Never Assessed Comments Unknown Sex and Gender Information Value Date Recorded Sex Assigned at Not on file Legal Sex Female 3:02 AM SIZING SPRAYER Gender Identity Not on file Sexual Orientation Not on file documented as of this encounter Plan of Treatment Not on file documented as of this encounter Visit Diagnoses Not on filedocumented in this encounter Care Teams Repair Miller Relationship Specialty Start Date End Date Otoniel Amaya MD [address] [facility] [address] [place] [address] PCP - General 01/09/09 documented as of this encounter
--- OUTSIDE RECORDS SUMMARY | 2025-04-05 15:15 | XMS_ITS | Encounter Summary ---
Author Organization [facility] Address [address] [place] [address] Care Team Providers Care Composer Teaching Artist Name Role Phone Otoniel Amaya MD Primary Care Provider [phone] Encounter Details Date Type Department Care Team (Late st Contact Info) Description 10/20/2001 Outpatient Historical [facility] Primary Care - [place] [address] [facility] [place] [phone] Martin Pacheco, DO * Social History Tobacco Use Types Packs/Day Years Used Date Smoking Tobacco: Never Assessed Comments Unknown Sex and Gender Information Value Date Recorded Sex Assigned at Not on file Legal Sex Female 3:02 AM SWIMMING COACH Gender Identity Not on file Sexual Orientation Not on file documented as of this encounter Plan of Treatment Not on file documented as of this encounter Visit Diagnoses Not on filedocumented in this encounter Care Teams Composer Teaching Artist Relationship Specialty Start Date End Date Otoniel Amaya MD [address] [facility] [address] [place] [address] PCP - General 01/09/09 documented as of this encounter
--- OUTSIDE RECORDS SUMMARY | 2025-04-05 15:15 | XMS_ITS | Encounter Summary ---
Author Organization [facility] Address [address] [place] [address] Care Team Providers Care Rag Cutting Machine Operator Name Role Phone Otoniel Amaya MD Primary Care Provider [phone] Encounter Details Date Type Department Care Team (Late st Contact Info) Description 01/17/2003 Outpatient Historical [facility] Primary Care - [place] [address] [facility] [place] [phone] Martin Pacheco, DO * Social History Tobacco Use Types Packs/Day Years Used Date Smoking Tobacco: Never Assessed Comments Unknown Sex and Gender Information Value Date Recorded Sex Assigned at Not on file Legal Sex Female 3:02 AM DIRECTOR OF INSTITUTIONAL SALES Gender Identity Not on file Sexual Orientation Not on file documented as of this encounter Plan of Treatment Not on file documented as of this encounter Visit Diagnoses Not on filedocumented in this encounter Care Teams Rag Cutting Machine Operator Relationship Specialty Start Date End Date Otoniel Amaya MD [address] [facility] [address] [place] [address] PCP - General 01/09/09 documented as of this encounter
--- OUTSIDE RECORDS SUMMARY | 2025-04-05 15:15 | XMS_ITS | Encounter Summary ---
Author Organization [facility] Address [address] [place] [address] Care Team Providers Care Enterprise Systems Administrator Name Role Phone Otoniel Amaya MD Primary Care Provider [phone] Encounter Details Date Type Department Care Team (Late st Contact Info) Description 12/16/2001 Outpatient Historical [facility] Primary Care - [place] [address] [facility] [place] [phone] Martin Pacheco, DO * Social History Tobacco Use Types Packs/Day Years Used Date Smoking Tobacco: Never Assessed Comments Unknown Sex and Gender Information Value Date Recorded Sex Assigned at Not on file Legal Sex Female 3:02 AM PULPER TENDER Gender Identity Not on file Sexual Orientation Not on file documented as of this encounter Plan of Treatment Not on file documented as of this encounter Visit Diagnoses Not on filedocumented in this encounter Care Teams Enterprise Systems Administrator Relationship Specialty Start Date End Date Otoniel Amaya MD [address] [facility] [address] [place] [address] PCP - General 01/09/09 documented as of this encounter
--- OUTSIDE RECORDS SUMMARY | 2025-04-05 15:15 | XMS_ITS | Encounter Summary ---
Author Organization [facility] Address [address] [place] [address] Care Team Providers Care Head Of Commission Department Name Role Phone Otoniel Amaya MD Primary Care Provider [phone] Encounter Details Date Type Department Care Team (Latest Contact Info) Description 08/28/2003 Inpatient Historical [facility] Kelly Ruiz MD [address] [phone] Russ Ernst MD [address] [id number] CHLAMYDIAL LOWER TRACT (Primary Dx) Social History Tobacco Use Types Packs/Day Years Used Date Smoking Tobacco: Never Assessed Comments Unknown Sex and Gender Information Value Date Recorded Sex Assigned at Not on file Legal Sex Female 3:02 AM CORRECTION OFFICER HEAD Gender Identity Not on file Sexual Orientation Not on file documented as of this encounter Plan of Treatment Not on file documented as of this encounter Visit Diagnoses Diagnosis 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
--- OUTSIDE RECORDS SUMMARY | 2025-04-05 15:15 | XMS_ITS | Encounter Summary ---
Author Organization [facility] Address [address] [place] [address] Care Team Providers Care Break Out Man Name Role Phone Otoniel Amaya MD Primary Care Provider [phone] Encounter Details Date Type Department Care Team (Late st Contact Info) Description 11/15/2003 Outpatient Historical [facility] Primary Care - [place] [address] [place] [phone] Britany Wei MD NO ADDRESS ON FILE Social History Tobacco Use Types Packs/Day Years Used Date Smoking Tobacco: Never Assessed Comments Unknown Sex and Gender Information Value Date Recorded Sex Assigned at Not on file Legal Sex Female 3:02 AM COUNSELING CENTER DIRECTOR Gender Identity Not on file Sexual Orientation Not on file documented as of this encounter Plan of Treatment Not on file documented as of this encounter Visit Diagnoses Not on filedocumented in this encounter Care Teams Break Out Man Relationship Specialty Start Date End Date Otoniel Amaya MD [address] [place] [address] PCP - General 01/09/09 documented as of this encounter
--- OUTSIDE RECORDS SUMMARY | 2025-04-05 15:15 | XMS_ITS | Encounter Summary ---
Author Organization [facility] Address [address] [place] [address] Care Team Providers Care Cheesemaker Helper Name Role Phone Otoniel Amaya MD Primary Care Provider [phone] Encounter Details Date Type Department Care Team (Late st Contact Info) Description 03/31/2002 Outpatient Historical [facility] Primary Care - [place] [address] [facility] [place] [phone] Martin Pacheco, DO * Social History Tobacco Use Types Packs/Day Years Used Date Smoking Tobacco: Never Assessed Comments Unknown Sex and Gender Information Value Date Recorded Sex Assigned at Not on file Legal Sex Female 3:02 AM COMMERCIAL REAL ESTATE PARALEGAL Gender Identity Not on file Sexual Orientation Not on file documented as of this encounter Plan of Treatment Not on file documented as of this encounter Visit Diagnoses Not on filedocumented in this encounter Care Teams Cheesemaker Helper Relationship Specialty Start Date End Date Otoniel Amaya MD [address] [facility] [address] [place] [address] PCP - General 01/09/09 documented as of this encounter
--- OUTSIDE RECORDS SUMMARY | 2025-04-05 15:15 | XMS_ITS | Encounter Summary ---
Author Organization [facility] Address [address] [place] [address] Care Team Providers Care Grommet Machine Operator Name Role Phone Otoniel Amaya MD Primary Care Provider [phone] Encounter Details Date Type Department Care Team (Late st Contact Info) Description 04/07/2002 Outpatient Historical [facility] Primary Care - [place] [address] [facility] [phone] Martin Pacheco, DO * Social History Tobacco Use Types Packs/Day Years Used Date Smoking Tobacco: Never Assessed Comments Unknown Sex and Gender Information Value Date Recorded Sex Assigned at Not on file Legal Sex Female 3:02 AM CLOTH SHEARER Gender Identity Not on file Sexual Orientation Not on file documented as of this encounter Plan of Treatment Not on file documented as of this encounter Visit Diagnoses Not on filedocumented in this encounter Care Teams Grommet Machine Operator Relationship Specialty Start Date End Date Otoniel Amaya MD [address] [facility] [address] [place] [address] PCP - General 01/09/09 documented as of this encounter
--- OUTSIDE RECORDS SUMMARY | 2025-04-05 15:15 | XMS_ITS | Encounter Summary ---
Author Organization [facility] Address [address] [place] [address] Care Team Providers Care Passenger Locomotive Engineer Name Role Phone Otoniel Amaya MD Primary Care Provider [phone] Encounter Details Date Type Department Care Team (Late st Contact Info) Description 01/27/2003 Outpatient Historical [facility] Primary Care - [place] [address] [facility] [place] [address] Martin Pacheco, DO * Social History Tobacco Use Types Packs/Day Years Used Date Smoking Tobacco: Never Assessed Comments Unknown Sex and Gender Information Value Date Recorded Sex Assigned at Not on file Legal Sex Female 3:02 AM WIRELESS CONSULTANT Gender Identity Not on file Sexual Orientation Not on file documented as of this encounter Plan of Treatment Not on file documented as of this encounter Visit Diagnoses Not on filedocumented in this encounter Care Teams Passenger Locomotive Engineer Relationship Specialty Start Date End Date Otoniel Amaya MD [address] [facility] [address] [place] [address] PCP - General 01/09/09 documented as of this encounter
--- OUTSIDE RECORDS SUMMARY | 2025-04-05 15:15 | XMS_ITS | Encounter Summary ---
Author Organization [facility] Address [address] [place] [address] Care Team Providers Care Rn Progressive Care Unit Name Role Phone Otoniel Amaya MD Primary Care Provider [phone] Encounter Details Date Type Department Care Team (Late st Contact Info) Description 08/17/2002 Outpatient Historical [facility] Primary Care - [place] [address] [facility] [address] Martin Pacheco, DO * Social History Tobacco Use Types Packs/Day Years Used Date Smoking Tobacco: Never Assessed Comments Unknown Sex and Gender Information Value Date Recorded Sex Assigned at Not on file Legal Sex Female 3:02 AM COAL TRIMMER MACHINE OPERATOR Gender Identity Not on file Sexual Orientation Not on file documented as of this encounter Plan of Treatment Not on file documented as of this encounter Visit Diagnoses Not on filedocumented in this encounter Care Teams Rn Progressive Care Unit Relationship Specialty Start Date End Date Otoniel Amaya MD [address] [facility] [address] [place] [address] PCP - General 01/09/09 documented as of this encounter
--- OUTSIDE RECORDS SUMMARY | 2025-04-05 15:15 | XMS_ITS | Encounter Summary ---
Author Organization [facility] Address [address] [place] [address] Care Team Providers Care Genetics Teacher Name Role Phone Otoniel Amaya MD Primary Care Provider [phone] Encounter Details Date Type Department Care Team (Late st Contact Info) Description 08/29/2003 Outpatient Historical [facility] [address] [place] [phone] Kelly Ruiz MD [address] [facility] [address] [place] [address] Social History Tobacco Use Types Packs/Day Years Used Date Smoking Tobacco: Never Assessed Comments Unknown Sex and Gender Information Value Date Recorded Sex Assigned at Not on file Legal Sex Female 3:02 AM MACHINERY MOVER Gender Identity Not on file Sexual Orientation Not on file documented as of this encounter Plan of Treatment Not on file documented as of this encounter Visit Diagnoses Not on filedocumented in this encounter Care Teams Genetics Teacher Relationship Specialty Start Date End Date Otoniel Amaya MD [address] [place], [place] [address] [address] [place] [address] PCP - General 01/09/09 documented as of this encounter
--- OUTSIDE RECORDS SUMMARY | 2025-04-05 15:15 | XMS_ITS | Clinical Summary ---
Author Organization [facility] Address [address] [place] [address] Care Team Providers Care Utility Worker Film Processing Name Role Phone Unavailable Primary Care Provider Unavailabl e Source Comments [facility],non-owned Affiliates and Associated Physician Practices is amultiple site organization consisting of ambulatory clinics and hospital sitesin [place], [place], [place] and [place]. This disclosure is being madepursuant to the Care Everywhere program and may not contain all information available regarding this patient. Last updated 18.[facility] [place] Social History Tobacco Use Types Packs/Day Years Used Date Smoking Tobacco: Never Assessed Comments Unknown Sex and Gender Information Value Date Recorded Sex Assigned at Not on file Legal Sex Female 6:45 PM TIE BUYER Gender Identity Not on file Sexual Orientation Not on file Plan of Treatment Health Maintenance Due Date Last Done Comments LIPID TESTING 1981 MAMMOGRAM 1981 HIV SCREENING 02/23/1996 HEPATITIS C SCREENING 02/18/1999 DTAP/TDAP/TD VACCINES (1 - Tdap) 02/23/2000 HEPATITIS B VACCINE (1 of 3 - 19+ 3-dose series) 02/23/2000 Cervical Cancer Screening 2002 PAP SMEAR 2002 HPV VACCINE (1 - 3-dose SCDM series) 02/23/2008 PAP with HPV 2011 DEPRESSION SCREENING 05/18/2024 COVID-19 VACCINE (1 - 2024-2 6 season) 2025 INFLUENZA VACCINE (#1) 2025 ZOSTER VACCINE (1 of 2) 2031 HIB VACCINE Aged Out No longer eligi ble based on patient's age to complete this topic MENINGOCOCCAL (Group B) VACC INE SHARED DECISION-MAKING Aged Out No longer eligibl e based on patient's age to complete this topic MENINGOCOCCAL GROUPS A/C/Y/W VACCINE Aged Out No longer eligible b ased on patient's age to complete this topic PNEUMOCOCCAL VACCINE Aged Out No long er eligible based on patient's age to complete this topic Insurance [facility]
--- OUTSIDE RECORDS SUMMARY | 2025-04-05 15:15 | XMS_ITS | Encounter Summary ---
Author Organization [facility] Address [address] [place] [address] Care Team Providers Care Rn Social Work Name Role Phone Otoniel Amaya MD Primary Care Provider [phone] Encounter Details Date Type Department Care Team (Late st Contact Info) Description 08/28/2003 Outpatient Historical [facility] Adult Hospitalists [facility] [address] [place] [address] Russ Ernst MD [address] [place] [address] Social History Tobacco Use Types Packs/Day Years Used Date Smoking Tobacco: Never Assessed Comments Unknown Sex and Gender Information Value Date Recorded Sex Assigned at Not on file Legal Sex Female 3:02 AM CLIPPING MARKER Gender Identity Not on file Sexual Orientation Not on file documented as of this encounter Plan of Treatment Not on file documented as of this encounter Visit Diagnoses Not on filedocumented in this encounter Care Teams Rn Social Work Relationship Specialty Start Date End Date Otoniel Amaya MD [address] [place], [place] [address]L[address] [place] [address] PCP - General 01/09/09 documented as of this encounter
--- OUTSIDE RECORDS SUMMARY | 2025-04-05 15:15 | XMS_ITS | Encounter Summary ---
Author Organization [facility] Address [address] [place] [address] Care Team Providers Care Diesel Engine Erector Name Role Phone Otoniel Amaya MD Primary Care Provider [phone] Encounter Details Date Type Department Care Team (Late st Contact Info) Description 09/14/2002 Outpatient Historical [facility] - [place] [address] [place] [id number] Martin Pacheco, DO * Social History Tobacco Use Types Packs/Day Years Used Date Smoking Tobacco: Never Assessed Comments Unknown Sex and Gender Information Value Date Recorded Sex Assigned at Not on file Legal Sex Female 3:02 AM BRAND MARKETING MANAGER Gender Identity Not on file Sexual Orientation Not on file documented as of this encounter Plan of Treatment Not on file documented as of this encounter Visit Diagnoses Not on filedocumented in this encounter Care Teams Diesel Engine Erector Relationship Specialty Start Date End Date Otoniel Amaya MD [address] [facility] [address] [place] [address] PCP - General 01/09/09 documented as of this encounter
--- OUTSIDE RECORDS SUMMARY | 2025-04-05 15:15 | XMS_ITS | Encounter Summary ---
Author Organization [facility] Address [address] [place] [address] Care Team Providers Care Ethyl Blender Name Role Phone Otoniel Amaya MD Primary Care Provider [phone] Encounter Details Date Type Department Care Team (Late st Contact Info) Description 08/28/2003 Outpatient Historical [facility] Adult Hospitalists [facility] [address] [place] [address] Rsus Ernst MD [address] [place] [address] Social History Tobacco Use Types Packs/Day Years Used Date Smoking Tobacco: Never Assessed Comments Unknown Sex and Gender Information Value Date Recorded Sex Assigned at Not on file 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
--- OUTSIDE RECORDS SUMMARY | 2025-04-05 15:15 | XMS_ITS | Encounter Summary ---
Author Organization [facility] Address [address] [place] [address] Care Team Providers Care File Drawer Finisher Name Role Phone Unavailable Primary Care Provider Unavailabl e Encounter Details Date Type Department Care Team (Late st Contact Info) Description 01/07/2023 Lab Requisition [facility] - DermPath Lab [address] [place] [id number] Marc Blackwood MD [facility] DERMATOLOGY [address] [place] [phone] Dermatitis, unspecified Social History Tobacco Use Types Packs/Day Years Used Date Smoking Tobacco: Never Assessed Comments Unknown Sex and Gender Information Value Date Recorded Sex Assigned at Not on file 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 Gender Identity Not on file Sexual Orientation Not on file documented as of this encounter Plan of Treatment Not on file documented as of this encounter Procedures Procedure Name Priority Date/Time Associated Diagnosis Comments DERMATOPATHOLOGY Routine 01/07/2023 12:0 0 AM CDT Dermatitis, unspecified documented in this encounter Results * DERMATOPATHOLOGY (01/07/2023 12:00 AM CDT) Case Report Dermatopathology Report Case: [id number] Authorizing Provider: Marc Blackwood MD Collected: 01/07/2023 12:00 AM Ordering Location: [facility] DermPath Lab Received: 01/08/2023 03:24 PM Pathologist: Anahy Enriquez MD Specimen: Skin, crown 4:17 PM CDT DERMATOPATHOLOGY LABORATORY Final Diagnosis Specimen A. SKIN, crown: CHRONIC SPONGIOTIC DERMATITIS (L30.8) (see microscopic description and comment) 3 4:17 PM CDT DERMATOPATHOLOGY LABORATORY at 1617 CDT Clinical History Folliculitis vs. Seborrheic Dermatitis vs Other 3 4:17 PM CDT DERMATOPATHOLOGY LABORATORY Gross Description Specimen A: Received is one formalin filled container labeled with the patient's name and designated crown. The specimen consists of a punch biopsy measuring 4x4x4 mm. Jar 0. 3 4:17 PM CDT DERMATOPATHOLOGY LABORATORY Microscopic Description Specimen A. SKIN, crown: There is focal parakeratosis and mild spongiosis of the epidermis. In the dermis there is a mainly superficial perivascular lymphoid infiltrate. Additional deeper sections were obtained and reviewed. COMMENT: These histological findings can be seen in an eczematous dermatitis. 3 4:17 PM CDT DERMATOPATHOLOGY LABORATORY Disclaimer An external and internal positive and negative controls are appropriate for the histochemical, immunohistochemical and immunofluorescence stain(s) in this case (if any), except where stated explicitly. The performance characteristics of the stain(s) cited in this report were developed and its performance characteristic determined by the Dermatopathology Laboratory at [facility], directed by Dr. Bird Clark. These tests need not be, and therefore are not, approved by the [place] Food and Drug Administration. The tests are used for clinical purposes. Billing Codes Specimen Charges Stain Charges 10941 1 3 4:17 PM CDT DERMATOPATHOLOGY LABORATORY Embedded Images 3 4:17 PM CDT DERMATOPATHOLOGY LABORATORY Pathology/Cytolog y TISSUE SPECIMEN FROM SKIN / Unknown 01/07/2023 01/08/2023 3:24 PM CDT Marc Blackwood MD LAB - PATHOLOGY/CYTOLOGY JESSENIA KLEIN Final Result DERMATOPATHOLOGY LABORATORY [facility] - Department of Dermatology [address] [place] [address], [facility] [phone] documented in this encounter Visit Diagnoses Diagnosis Dermatitis, unspecified documented in this encounter
--- OUTSIDE RECORDS SUMMARY | 2025-04-05 15:17 | XMS_ITS | Patient Health Record ---
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 Name Role Phone Evette KING, Christine Primary Care Provider Nelson Andrea Schaffer Unavailable [phone] Allergies No Known Allergies Results Component Value Reference Range Flag Notes VITAMIN D,25-OH,TOTAL,IA (17 306) Reviewed date:03/02/2025 10:00:49 AM Interpretation:Abnormal (follow-up needed) Performing Lab:[place], [facility]-[id number] Rebec[facility], [id number] Bob Warner MD Notes/Report: NON-FASTING; NON-FASTING; NON-FASTING; NON-FASTING; NON-FAST FASTING:YES FASTING: YES VITAMIN D,25-OH,TOTAL,IA 19 30-100 ng/mL L Vitamin D Status 25-OH Vitamin D: Deficiency: <20 ng/mL Insufficiency: 20 - 29 ng/mL Optimal: > or = 30 ng/mL For 25-OH Vitamin D testing on patients on D2-supplementation and patients for whom quantitation of D2 and D3 fractions is required, the QuestAssureD(TM) 25-OH VIT D, (D2,D3), LC/MS/MS is recommended: order code 35499 (patients >2yrs). See Note 1 Note 1 For additional information, please refer to http://education.FashFolio.Paixie.net/faq/WDQ149 (This link is being provided for informational/ educational purposes only.) TSH W/REFLEX TO FT4 (50793) Reviewed date:03/02/2025 10:00:49 AM Interpretation:Normal Performing Lab:[place] [id number] Administration Darnell Neely [id number] Bob Warner Notes/Report: NON-FASTING; NON-FASTING; NON-FASTING; NON-FASTING; NON-FAST FASTING:YES FASTING: YES TSH W/REFLEX TO FT4 1.74 N Reference Range > or = 20 Years 0.40-4.50 Ranges First trimester 0.26-2.66 Second trimester 0.55-2.73 Third trimester 0.43-2.91 VITAMIN B12/FOLATE, SERUM PA ALIS (7065) Reviewed date:03/02/2025 10:00:49 AM Interpretation:Normal Performing Lab:[facility]-[id number] Rebeca [place], [id number] Bob Warner MD Notes/Report: NON-FASTING; NON-FASTING; NON-FASTING; NON-FASTING; NON-FAST FASTING:YES FASTING: YES VITAMIN B12 151 519-6151 pg/mL N Please Note: Although the reference range for vitamin B12 is 200-1100 pg/mL, it has been reported that between 5 and 10% of patients with values between 200 and 400 pg/mL may experience neuropsychiatric and hematologic abnormalities due to occult B12 deficiency; less than 1% of patients with values above 400 pg/mL will have symptoms. FOLATE, SERUM 5.7 N Reference Range Low: <3.4 Borderline: 3.4-5.4 Normal: >5.4 HEMOGLOBIN A1c (496) Reviewed date:03/02/2025 10:00:49 AM Interpretation:Normal Performing Lab:[place] [place] [address] Administration Darnell Neely [id number] Bob Warner Notes/Report: NON-FASTING; NON-FASTING; NON-FASTING; NON-FASTING; NON-FAST FASTING:YES FASTING: YES HEMOGLOBIN A1c 4.8 <5.7 % of total Hgb N For the purpose of screening for the presence of diabetes: <5.7% Consistent with the absence of diabetes 5.7-6.4% Consistent with increased risk for diabetes (prediabetes) > or =6.5% Consistent with diabetes This assay result is consistent with a decreased risk of diabetes. Currently, no consensus exists regarding use of hemoglobin A1c for diagnosis of diabetes in children. According to [place] Diabetes Association (ADA) guidelines, hemoglobin A1c <7.0% represents optimal control in non- diabetic patients. Different metrics may apply to specific patient populations. Standards of Medical Care in Diabetes(ADA). CBC (INCLUDES DIFF/PLT) (REF L) (28965) Reviewed date:03/02/2025 10:00:49 AM Interpretation:Abnormal (no f/u needed) Performing Lab:[place] [address] [address] Darnell Neely [id number] [facility] Notes/Report: NON-FASTING; NON-FASTING; NON-FASTING; NON-FASTING; NON-FAST FASTING:YES FASTING: YES WHITE BLOOD CELL COUNT 5.6 3.8-10.8 Thousand/uL N RED BLOOD CELL COUNT 4.39 3.80-5.10 Million/uL N HEMOGLOBIN 13.7 11.7-15.5 g/dL N HEMATOCRIT 43.0 35.0-45.0 % N MCV 97.9 80.0-100.0 fL N MCH 31.2 27.0-33.0 pg N MCHC 31.9 32.0-36.0 g/dL L For adults, a slight decrease in the calculated MCHC value (in the range of 30 to 32 g/dL) is most likely not clinically significant; however, it should be interpreted with caution in correlation with other red cell parameters and the patient's clinical condition. RDW 12.0 11.0-15.0 % N PLATELET COUNT 168 140-400 Thousand/uL N MPV 11.3 7.5-12.5 fL N ABSOLUTE NEUTROPHILS 3685 4595-5373 cells/uL N ABSOLUTE LYMPHOCYTES 3424 080-9869 cells/uL N ABSOLUTE MONOCYTES 302 200-950 cells/uL N ABSOLUTE EOSINOPHILS 28 15-500 cells/uL N ABSOLUTE BASOPHILS 22 0-200 cells/uL N NEUTROPHILS 65.8 N LYMPHOCYTES 27.9 N MONOCYTES 5.4 N EOSINOPHILS 0.5 N BASOPHILS 0.4 N COMPREHENSIVE METABOLIC PANE L (25734) Reviewed date:03/02/2025 10:00:49 AM Interpretation:Abnormal (no f/u needed) Performing Lab:[place] [place] [id number] Administration Darnell Neely [id number] [facility] Notes/Report: NON-FASTING; NON-FASTING; NON-FASTING; NON-FASTING; NON-FAST FASTING:YES FASTING: YES GLUCOSE 81 65-99 mg/dL N Fasting reference interval UREA NITROGEN (BUN) 8 7-25 mg/dL N CREATININE 0.68 0.50-0.99 mg/dL N EGFR 110 > OR = 60 mL/min/1.73m2 N BUN/CREATININE RATIO SEE NOTE: 6-22 (calc) Not Reported: BUN and Creatinine are within reference range. SODIUM 135 135-146 mmol/L N POTASSIUM 3.7 3.5-5.3 mmol/L N CHLORIDE 101 98-110 mmol/L N CARBON DIOXIDE 26 20-32 mmol/L N CALCIUM 8.6 8.6-10.2 mg/dL N PROTEIN, TOTAL 6.6 6.1-8.1 g/dL N ALBUMIN 4.4 3.6-5.1 g/dL N GLOBULIN 2.2 1.9-3.7 g/dL (calc) N ALBUMIN/GLOBULIN RATIO 2.0 1.0-2.5 (calc) N BILIRUBIN, TOTAL 0.8 0.2-1.2 mg/dL N ALKALINE PHOSPHATASE 30 31-125 U/L L AST 12 10-30 U/L N ALT 9 6-29 U/L N TESTOSTERONE, FREE, BIOAVAIL ABLE AND TOTAL, MS (14328) Reviewed date:03/02/2025 10:00:49 AM Interpretation:Normal Performing Lab:[facility] [place] [address], [address]AD[address] Tate Mahoney MD,PhD Notes/Report: NON-FASTING; NON-FASTING; NON-FASTING; NON-FASTING; NON-FAST FASTING:YES FASTING: YES ALBUMIN 4.3 3.6-5.1 g/dL SEX HORMONE BINDING GLOBULIN 110 17-124 nmol/L TESTOSTERONE, FREE 0.5 0.2-5.0 pg/mL TESTOSTERONE,BIOAVAILABLE 0.9 0.5-8.5 ng/dL TESTOSTERONE, TOTAL, MS 11 2-45 ng/dL characteristics have been determined by [facility]. It has not been cleared or approved by the FDA. This assay has been validated pursuant to the CLIA regulations and is used for clinical purposes. [facility] [address] [facility] [address] [facility] [address] Tate Mahoney MD, PhD For additional information, please refer to https://WhichSocial.com/faq/ZMZ490 (This link is being provided for informational/educational purposes only.) (Note) This test was developed and its analytical performance LIPID PANEL, STANDARD (7600) Reviewed date:03/02/2025 10:00:49 AM Interpretation:Normal Performing Lab:, [place] [address] [place] [id number] [facility] Notes/Report: NON-FASTING; NON-FASTING; NON-FASTING; NON-FASTING; NON-FAST FASTING:YES FASTING: YES CHOLESTEROL, TOTAL 186 <200 mg/dL N HDL CHOLESTEROL 86 > OR = 50 mg/dL N TRIGLYCERIDES 81 <150 mg/dL N LDL-CHOLESTEROL 83 N Reference range: <100 Desirable range <100 mg/dL for primary prevention; <70 mg/dL for patients with CHD or diabetic patients with > or = 2 CHD risk factors. LDL-C is now calculated using the Julio C-Bryant calculation, which is a validated novel method providing better accuracy than the Friedewald equation in the estimation of LDL-C. Julio C SS et al. DELANO. 2013;310(19): 1135-3065 (http://Asseta/faq/VLK673) CHOL/HDLC RATIO 2.2 <5.0 (calc) N NON HDL CHOLESTEROL 100 <130 mg/dL (calc) N For patients with diabetes plus 1 major ASCVD risk factor, treating to a non-HDL-C goal of <100 mg/dL (LDL-C of <70 mg/dL) is considered a therapeutic option. Reason For Referral No Information Medications Medication SIG (Take, Route, Frequency, Duration) Notes Start Date End Date Status Atomoxetine HCl 60 MG Capsule 1 capsule Oral Once a day; Duration: 90 days Active traZODone HCl 100 MG Tablet TAKE 1 TABLE T BY MOUTH ONCE DAILY AT BEDTIME; Duration: 90 Active buPROPion HCl ER (XL) 300 MG Tablet Extended Release 24 Hour TAKE 1 TABLET BY MOUTH ONCE DAILY IN THE MORNING; Duration: 90 Active Vilazodone HCl 40 MG Tablet TAKE 1 TABLE T BY MOUTH ONCE DAILY WITH FOOD; Duration: 90 Active Vitamin D (Ergocalciferol) 49010 UNIT Capsule 1 capsule once a week Orally see sign; Duration: 30 days 03/02/2025 Active Cetirizine HCl 10 MG Tablet Oral 08/13/2023 Active Immunizations Vaccine Route Administration Date Status Comme nts Moderna Covid-19 Vaccine 1st dose Unknown 06/05/2020 Ad ministered Moderna Covid-19 Vaccine 1st dose Unknown 07/03/2020 Ad ministered Pfizer Biontech Covid-19 Vac cine 2nd dose Unknown 05/02/2021 Administered Tdap Unknown 10/17/2019 Administered Tdap Unknown 11/04/2019 Administered Social History Tobacco Use: Social History Observation Description Date Details (start date - stop date) Former Smoker NA - NA Sex Assigned At : Social History Observation Description Sex Assigned At Female Social History Miscellaneous: Social Info Question Answer Notes Advance Care Planning Are you your own decision-maker Yes Do you have Power of Saddle And Harness Maker for Health or [facility]? No Drug/Alcohol: Social Info Question Answer Notes AUDIT-C (Standard) Did you have a drink containing alcohol in the past year? Yes How often did you have six or more drinks on one occasion in the past year? Never (0 point) How many drinks did you have on a typical day when you were drinking in the past year? 1 or 2 drinks (0 point) How often did you have a drink containing alcohol in the past year? Monthly or less (1 point) Tobacco Use: Social Info Question Answer Notes Tobacco Control (Standard) Tobacco use: Former smoker Tobacco Use/Smoking Tobacco use: former smoker Additional Details Category Social Info Options Details Migrated Social History Migrated Social History Alcohol Intake: Occasional 08/20/2020,Tobacco Years: Former smoker 10/30/2022 Drug/Alcohol: Do you smoke marijuana? Denies Do you drink alcohol? 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 Living situation: Lives With Three Sons, Ages 24, 17, And 12 Smoking: Tried To Quit Smoking With Wellbutrin In The Past Travel: Drove To [place], [place] To Spend Time With Friends Living situation: Feels Isolated When Children Are Away; Stays With Friends To Avoid Loneliness Occupation: Works a 7 to 3:30 shift Problems Problem Type SNOMED Code ICD Code Onset Dates Problem Status W/U Status Risk Notes Problem Moderate recurrent major depression (44001764) Major depressive disorder, recurrent, moderate (F33.1) Active confirmed Problem Generalized anxiety disorder (52210126) Generalized anxiety disorder (F41.1) 08/13/19 Active confirmed Problem Primary insomnia (7372058) Primary insomnia (F51.01) 08/13/19 Active confirmed Problem Attention deficit hyperactivity disorder (194360903) Attention-deficit hyperactivity disorder, unspecified type (F90.9) 08/13/19 Active confirmed Problem Fatigue, chronic , syndrome (G93.32) Active confirmed Vital Signs Heart Rate 77 /min 02/08/2025 113 Height-cm 167.64 cm 02/08/2025 113 Blood pressure diastolic 79 mm Hg 02/08/2025 113 Weight-kg 69.13 kg 02/08/2025 113 Height 66.00 in 02/08/2025 113 Blood pressure systolic 113 mm Hg 02/08/2025 113 Weight 152.4 lbs 02/08/2025 113 BMI 24.6 kg/m2 02/08/2025 113 Encounters Encounter Location Date Provider Diagnosis LMN-[address] [facility] [address] [place] [address] 05/04/2024 Andrea Lucasam Attention-deficit hyperactivity disorder, unspecified type F90.9 ; Generalized anxiety disorder F41.1 and Primary insomnia F51.01 LMN-[address] [place] [place] [address] 06/06/2024 Andreajames Lucasam Attention-deficit hyperactivity disorder, unspecified type F90.9 ; Generalized anxiety disorder F41.1 and Primary insomnia F51.01 LMN-[address] [place] [address] [place] [address] 08/29/2024 Andrea Bell Encounter for screen ing for depression Z13.31 ; Encounter for screening for cardiovascular disorders Z13.6 ; Attention-deficit hyperactivity disorder, unspecified type F90.9 ; Generalized anxiety disorder F41.1 and Primary insomnia F51.01 [place] [address] [facility] [address] [place] [address] 09/26/2024 Andrea Ray Attention-deficit hyperactivity disorder, unspecified type F90.9 ; Generalized anxiety disorder F41.1 ; Primary insomnia F51.01 ; Negative depression screening Z13.31 and Encounter for screening for cardiovascular disorders Z13.[address] [facility] [address] [place] [address] 12/29/2024 Andrea Ray Major depressive disorder, recurrent, moderate F33.1 ; Attention-deficit hyperactivity disorder, unspecified type F90.9 ; Generalized anxiety disorder F41.1 and Primary insomnia F51.[address] [facility] [address] [place] [address] 01/09/2025 Andrea Ray Major depressive disorder, recurrent, moderate F33.1 ; Attention-deficit hyperactivity disorder, unspecified type F90.9 ; Generalized anxiety disorder F41.1 and Primary insomnia F51.01 [place] [id number] [facility] [address] [facility] [address] [place] [address] 02/08/2025 Andrea Ray Major depressive disorder, recurrent, moderate F33.1 ; Primary insomnia F51.01 ; Attention-deficit hyperactivity disorder, unspecified type F90.9 ; Generalized anxiety disorder F41.1 ; Fatigue, chronic, syndrome G93.32 and Other fatigue R53.83 [place] [address] [facility] [address] [address] 03/09/2025 Andrea Ray [place] [address] [address] [facility] [address] [facility] [address] [place] [address] 06/24/2024 Andrea Ray Attention-deficit hyperactivity disorder, unspecified type F90.9 [place] [address] [facility] [address] [place] [address] 10/26/2024 Andrea Ray Primary insomnia F51 .01 ; Attention-deficit hyperactivity disorder, unspecified type F90.9 and Generalized anxiety disorder F41.1 [place] [address]03 [facility] [address] [facility] [address] [place] [address] 12/30/2024 Andrea Ray Attention-deficit hyperactivity disorder, unspecified type F90.9 [facility] [address] [place] [place] [address] 02/08/2025 Andrea Bell Attention-deficit hyperactivity disorder, unspecified type F90.9 [facility] [address] [place] [place] [address] 12/12/2024 Andrea Bell Generalized anxiety disorder F41.1 [place] [address] [place] [address] [place] [address] 03/02/2025 Andrea Bell Assessments Encounter Date Diagnosis (ICD Code) Assessment Notes Treatment Notes Treatment Clinical Notes Section Notes 06/06/2024 Attention-defici t hyperactivity disorder, unspecified type (ICD-10 - F90.9) 06/24/2024 Attention-defici t hyperactivity disorder, unspecified type (ICD-10 - F90.9) 05/04/2024 Attention-defici t hyperactivity disorder, unspecified type (ICD-10 - F90.9) ADHD - Assessment: Patient has not been taking Adderall due to side effects such as moodiness and an electrical feeling. Previous trials of atomoxetine and Culpery were not well-tolerated. - Plan: - Discontinue Adderall. - Start atomoxetine at a low dose of 25 mg, with a gradual increase to 50 mg and then 80 mg as tolerated. - Monitor heart rate with [employer]. - Prescribe a 30-day supply of atomoxetine-25 mg with a refill. Tachycardia - Assessment: Patient has a history of increased heart rate with atomoxetine use. Currently taking Corlanor for heart rate management, which is stable. - Plan: - Continue Corlanor as prescribed. - Monitor heart rate closely during atomoxetine titration, especially if symptoms of tachycardia reoccur. - Patient to monitor heart rate for a week before starting atomoxetine to establish baseline. Anxiety - Assessment: Patient is taking vilazodone 40 mg daily and occasionally uses alprazolam for anxiety management. Patient reports not having used alprazolam in 1.5-2 months. - Plan: - Continue vilazodone 40 mg daily. - Encourage the patient to use alprazolam sparingly and only as needed for acute anxiety episodes. Insomnia - Assessment: Patient reports that trazodone-50 mg works well for sleep. - Plan: - Continue trazodone-50 mg as needed for insomnia. - Patient to obtain medication from [facility]. Infection Prophylaxis - Assessment: Patient was prescribed amoxicillin as usual. - Plan: - Continue amoxicillin as prescribed for infection prophylaxis. Genetic Testing - Assessment: Patient reports being a hypermetabolizer based on previous genetic testing. - Plan: - Consider genetic test results in medication management, particularly for medications affected by metabolism rates. 08/29/2024 Encounter for screening for depression (ICD-10 - Z13.31) Imported from Highlights: The patient has had multiple encounters with healthcare providers at the [facility] ([facility]) from August 2023 to July 2024. The patient was seen by several providers including Dr. Pam Marte, Christine BAÑUELOS, Carmen Fulton MD, Jacqueline Valdez CMA, and Jay Higgins MD. The patient's medical conditions include Gastroesophageal reflux disease without esophagitis, Hyperreflexia, Paresthesias, Upper extremity weakness, Weakness of both lower extremities, Arthralgia, unspecified joint, Need for hepatitis C screening test, Other fatigue, Screening for lipid disorders, Vitamin D deficiency, Lumbar radiculopathy, Neck pain, and Family history of early CAD. The patient also had a screening mammogram for malignant neoplasm of breast in July 2024. The patient had hospital encounters in March 2024 and February 2024 for Hyperreflexia and Paresthesias respectively. 09/26/2024 Generalized anxiety disorder (ICD-10 - F41.1) 09/26/2024 Attention-defici t hyperactivity disorder, unspecified type (ICD-10 - F90.9) 10/26/2024 Primary insomnia (ICD-10 - F51.01) 12/12/2024 Generalized anxiety disorder (ICD-10 - F41.1) 12/29/2024 Major depressive disorder, recurrent, moderate (ICD-10 - F33.1) Symptoms include worsening depression, difficulty finding ron, irritability, and long days and nights. No clear triggers identified; patient denied suicidal thoughts, psychosis, paranoia, trauma, or medical issues. Patient is currently taking vilazodone, atomoxetine, and trazodone. Patient requested an increase in trazodone dose. Provider discussed options for new antidepressant therapy, including bupropion and duloxetine. - Start bupropion as a new antidepressant. - - Continue trazodone 100 mg, 1 tablet at bedtime. - Continue vilazodone 40 mg. - Send prescriptions to [facility] pharmacy as requested by patient. 12/29/2024 Attention-defici t hyperactivity disorder, unspecified type (ICD-10 - F90.9) Continue atomoxetine 50 mg. 01/09/2025 Major depressive disorder, recurrent, moderate (ICD-10 - F33.1) Depression and irritability were previously reported, with mood improvement noted after starting Wellbutrin. Patient experiences increased symptoms when her children are away, leading to feelings of isolation. Current medication regimen includes Wellbutrin and Trazodone, with ongoing benefit. Patient actively uses social strategies to manage mood and prevent loneliness. - Increase Wellbutrin from 150 mg to 300 mg once daily. - Continue Trazodone 100 mg. - Monitor mood and depression symptoms. - Encourage ongoing use of social support strategies. 02/08/2025 Major depressive disorder, recurrent, moderate (ICD-10 - F33.1) Fatigue onset coincided with depressive episode. Patient reported emotional changes and time spent lying in bed. Wellbutrin prescribed previously, helped mentally but not motivation. 02/08/2025 Primary insomnia (ICD-10 - F51.01) Patient does not feel refreshed after sleep despite sleeping through the night. Denied snoring and frequent nighttime awakenings. 02/08/2025 Attention-defici t hyperactivity disorder, unspecified type (ICD-10 - F90.9) 01/09/2025 Attention-defici t hyperactivity disorder, unspecified type (ICD-10 - F90.9) Continue atomoxetine 50 mg. Patient reported attention and focus difficulties, with improvement after starting Wellbutrin. Medication regimen adjusted to support attention symptoms. - Increase Wellbutrin from 150 mg to 300 mg once daily. - Monitor attention and focus symptoms. 02/08/2025 Attention-defici t hyperactivity disorder, unspecified type (ICD-10 - F90.9) Electronic Prior Authorization was requested for Atomoxetine HCl 25 MG Capsule. Provider can order medication once approval received. 12/30/2024 Attention-defici t hyperactivity disorder, unspecified type (ICD-10 - F90.9) Electronic Prior Authorization was requested for Atomoxetine HCl 25 MG Capsule. Provider can order medication once approval received. 12/29/2024 Generalized anxiety disorder (ICD-10 - F41.1) 10/26/2024 Attention-defici t hyperactivity disorder, unspecified type (ICD-10 - F90.9) 09/26/2024 Primary insomnia (ICD-10 - F51.01) 06/06/2024 Generalized anxiety disorder (ICD-10 - F41.1) 08/29/2024 Encounter for screening for cardiovascular disorders (ICD-10 - Z13.6) Imported from Highlights: The patient has had multiple encounters with healthcare providers at the [facility] ([facility]) from August 2023 to July 2024. The patient was seen by several providers including Dr. Pam Marte, Christine BAÑUELOS, Carmen Fulton MD, Jacqueline Valdez CMA, and Jay Higgins MD. The patient's medical conditions include Gastroesophageal reflux disease without esophagitis, Hyperreflexia, Paresthesias, Upper extremity weakness, Weakness of both lower extremities, Arthralgia, unspecified joint, Need for hepatitis C screening test, Other fatigue, Screening for lipid disorders, Vitamin D deficiency, Lumbar radiculopathy, Neck pain, and Family history of early CAD. The patient also had a screening mammogram for malignant neoplasm of breast in July 2024. The patient had hospital encounters in March 2024 and February 2024 for Hyperreflexia and Paresthesias respectively. 05/04/2024 Generalized anxiety disorder (ICD-10 - F41.1) ADHD - Assessment: Patient has not been taking Adderall due to side effects such as moodiness and an electrical feeling. Previous trials of atomoxetine and Culpery were not well-tolerated. - Plan: - Discontinue Adderall. - Start atomoxetine at a low dose of 25 mg, with a gradual increase to 50 mg and then 80 mg as tolerated. - Monitor heart rate with [employer]. - Prescribe a 30-day supply of atomoxetine-25 mg with a refill. Tachycardia - Assessment: Patient has a history of increased heart rate with atomoxetine use. Currently taking Corlanor for heart rate management, which is stable. - Plan: - Continue Corlanor as prescribed. - Monitor heart rate closely during atomoxetine titration, especially if symptoms of tachycardia reoccur. - Patient to monitor heart rate for a week before starting atomoxetine to establish baseline. Anxiety - Assessment: Patient is taking vilazodone 40 mg daily and occasionally uses alprazolam for anxiety management. Patient reports not having used alprazolam in 1.5-2 months. - Plan: - Continue vilazodone 40 mg daily. - Encourage the patient to use alprazolam sparingly and only as needed for acute anxiety episodes. Insomnia - Assessment: Patient reports that trazodone-50 mg works well for sleep. - Plan: - Continue trazodone-50 mg as needed for insomnia. - Patient to obtain medication from [facility]. Infection Prophylaxis - Assessment: Patient was prescribed amoxicillin as usual. - Plan: - Continue amoxicillin as prescribed for infection prophylaxis. Genetic Testing - Assessment: Patient reports being a hypermetabolizer based on previous genetic testing. - Plan: - Consider genetic test results in medication management, particularly for medications affected by metabolism rates. 05/04/2024 Primary insomnia (ICD-10 - F51.01) ADHD - Assessment: Patient has not been taking Adderall due to side effects such as moodiness and an electrical feeling. Previous trials of atomoxetine and Culpery were not well-tolerated. - Plan: - Discontinue Adderall. - Start atomoxetine at a low dose of 25 mg, with a gradual increase to 50 mg and then 80 mg as tolerated. - Monitor heart rate with [facility]. - Prescribe a 30-day supply of atomoxetine-25 mg with a refill. Tachycardia - Assessment: Patient has a history of increased heart rate with atomoxetine use. Currently taking Corlanor for heart rate management, which is stable. - Plan: - Continue Corlanor as prescribed. - Monitor heart rate closely during atomoxetine titration, especially if symptoms of tachycardia reoccur. - Patient to monitor heart rate for a week before starting atomoxetine to establish baseline. Anxiety - Assessment: Patient is taking vilazodone 40 mg daily and occasionally uses alprazolam for anxiety management. Patient reports not having used alprazolam in 1.5-2 months. - Plan: - Continue vilazodone 40 mg daily. - Encourage the patient to use alprazolam sparingly and only as needed for acute anxiety episodes. Insomnia - Assessment: Patient reports that trazodone-50 mg works well for sleep. - Plan: - Continue trazodone-50 mg as needed for insomnia. - Patient to obtain medication from [facility]. Infection Prophylaxis - Assessment: Patient was prescribed amoxicillin as usual. - Plan: - Continue amoxicillin as prescribed for infection prophylaxis. Genetic Testing - Assessment: Patient reports being a hypermetabolizer based on previous genetic testing. - Plan: - Consider genetic test results in medication management, particularly for medications affected by metabolism rates. 08/29/2024 Attention-defici t hyperactivity disorder, unspecified type (ICD-10 - F90.9) Imported from [place]: The patient has had multiple encounters with healthcare providers at the [facility] ([facility]) from August 2023 to July 2024. The patient was seen by several providers including Dr. Pam Marte, Christine BAÑUELOS, Carmen Fulton MD, Jacqueline Valdez CMA, and Jay Higgins MD. The patient's medical conditions include Gastroesophageal reflux disease without esophagitis, Hyperreflexia, Paresthesias, Upper extremity weakness, Weakness of both lower extremities, Arthralgia, unspecified joint, Need for hepatitis C screening test, Other fatigue, Screening for lipid disorders, Vitamin D deficiency, Lumbar radiculopathy, Neck pain, and Family history of early CAD. The patient also had a screening mammogram for malignant neoplasm of breast in July 2024. The patient had hospital encounters in March 2024 and February 2024 for Hyperreflexia and Paresthesias respectively. 06/06/2024 Primary insomnia (ICD-10 - F51.01) 09/26/2024 Negative depression screening (ICD-10 - Z13.31) 10/26/2024 Generalized anxiety disorder (ICD-10 - F41.1) 12/29/2024 Primary insomnia (ICD-10 - F51.01) Continue trazodone 100 mg, 1 tablet at bedtime. 01/09/2025 Generalized anxiety disorder (ICD-10 - F41.1) 02/08/2025 Generalized anxiety disorder (ICD-10 - F41.1) 01/09/2025 Primary insomnia (ICD-10 - F51.01) Continue trazodone 100 mg, 1 tablet at bedtime. 09/26/2024 Encounter for screening for cardiovascular disorders (ICD-10 - Z13.6) 08/29/2024 Generalized anxiety disorder (ICD-10 - F41.1) Imported from [place]: The patient has had multiple encounters with healthcare providers at the [facility] ([facility]) from August 2023 to July 2024. The patient was seen by several providers including Dr. Pam Marte, Christine BAÑUELOS, Carmen Fulton MD, Jacqueline Valdez CMA, and Jay Higgins MD. The patient's medical conditions include Gastroesophageal reflux disease without esophagitis, Hyperreflexia, Paresthesias, Upper extremity weakness, Weakness of both lower extremities, Arthralgia, unspecified joint, Need for hepatitis C screening test, Other fatigue, Screening for lipid disorders, Vitamin D deficiency, Lumbar radiculopathy, Neck pain, and Family history of early CAD. The patient also had a screening mammogram for malignant neoplasm of breast in July 2024. The patient had hospital encounters in March 2024 and February 2024 for Hyperreflexia and Paresthesias respectively. 02/08/2025 Fatigue, chronic, syndrome (ICD-10 - G93.32) 02/08/2025 Other fatigue (ICD-10 - R53.83) Persistent fatigue and tiredness, especially in the afternoons. Symptoms have not improved over time. Unable to complete chores after work and lacks motivation. Prior lab work reviewed; new labs ordered to investigate underlying causes. - Ordered CBC, lipid profile, vitamin B12, folate, and testosterone labs to evaluate fatigue. 08/29/2024 Primary insomnia (ICD-10 - F51.01) Imported from [place]: The patient has had multiple encounters with healthcare providers at the [facility] ([facility]) from August 2023 to July 2024. The patient was seen by several providers including Dr. Pam Marte, Christine BAÑUELOS, Carmen Fulton MD, Jacqueline Valdez CMA, and Jay Higgins MD. The patient's medical conditions include Gastroesophageal reflux disease without esophagitis, Hyperreflexia, Paresthesias, Upper extremity weakness, Weakness of both lower extremities, Arthralgia, unspecified joint, Need for hepatitis C screening test, Other fatigue, Screening for lipid disorders, Vitamin D deficiency, Lumbar radiculopathy, Neck pain, and Family history of early CAD. The patient also had a screening mammogram for malignant neoplasm of breast in July 2024. The patient had hospital encounters in March 2024 and February 2024 for Hyperreflexia and Paresthesias respectively. 06/06/2024 Other Employment-rela luz elena Stress - Assessment: Patient reports stress related to job and workplace changes, including staff reductions and increased workload. No significant anxiety or depression symptoms reported. - Plan: - Encourage patient to continue using self-talk and coping strategies to manage stress. - Monitor for any changes in mental health status. ADHD - Assessment: Patient is currently on atomoxetine 25 mg. Reports tolerating the medication well without tachycardia or appetite suppression. - Plan: - Increase atomoxetine dosage to 50 mg daily. - Prescribe 30-day supply with two refills. - Instruct patient to monitor for tachycardia and other side effects. - Patient may alternate between 25 mg and 50 mg daily for two weeks to develop tolerance. - Follow up in two to three months or sooner if any issues arise. - Adjustments can be made over the phone if necessary. Tachycardia - Assessment: Patient has a history of tachycardia with higher doses of atomoxetine. - Plan: - Monitor patient's heart rate as atomoxetine dosage is increased. - If tachycardia occurs, consider adjusting the dosage or changing the medication. - Encourage patient to report any symptoms or concerns. Medication Management - Assessment: Patient is satisfied with current medications and dosages, aside from atomoxetine. - Plan: - Continue current medications and dosages. - Adjust atomoxetine as discussed above. - Follow up in two to three months or sooner if any issues arise. 08/29/2024 Good Diaz presents with lack of motivation and a history of acid reflux, currently managed with multiple medications including atomoxetine, vilazodone, and trazodone. Lack of motivation Assessment: Patient reports experiencing a lack of motivation for approximately one month, without associated sadness or laziness. This symptom is impacting daily activities such as laundry and going out. The patient is currently taking atomoxetine 25 mg daily for ADHD management, which was recently increased to 50 mg but temporarily reduced due to acid reflux symptoms. The lack of motivation persists despite medication management, suggesting potential inadequate symptom control or a need for dose adjustment. Plan: - Increase atomoxetine to 50 mg PO daily - Follow up in 30 days to reassess motivation and medication efficacy - Continue vilazodone 40 mg PO daily - Continue trazodone 50 mg PO at bedtime Gastroesophagea l reflux disease (GERD) Assessment: Patient reports a history of severe acid reflux, which worsened after a norovirus infection in late May. Recent exacerbation caused difficulty swallowing and restricted diet to soft foods for weeks. Currently managed with pantoprazole (Protonix), which has provided some relief. A GI consultation is scheduled for September. Plan: - Continue current GERD management with pantoprazole as prescribed - Await GI consultation in September for further evaluation and management History of cervical radiculopathy Assessment: Patient mentions a history of numbness and tingling in arms and legs, which prompted a cervical spine MRI and neurologist referral. No current symptoms reported. Plan: - Monitor for recurrence of neurological symptoms Disclaimer: This note has been transcribed using speech recognition software and serves as a reflection of the patient's visit. While efforts have been made to ensure accuracy, there may be errors, including stocking and box shop supervisor inaccuracies and misspellings of medication names. This document should not be considered a verbatim record, and any discrepancies should be verified with the provider. Imported from [place]: The patient has had multiple encounters with healthcare providers at the [facility] ([facility]) from August 2023 to July 2024. The patient was seen by several providers including Dr. Pam Marte, Christine BAÑUELOS, Carmen Fulton MD, Jacqueline Valdez CMA, and Jay Higgins MD. The patient's medical conditions include Gastroesophageal reflux disease without esophagitis, Hyperreflexia, Paresthesias, Upper extremity weakness, Weakness of both lower extremities, Arthralgia, unspecified joint, Need for hepatitis C screening test, Other fatigue, Screening for lipid disorders, Vitamin D deficiency, Lumbar radiculopathy, Neck pain, and Family history of early CAD. The patient also had a screening mammogram for malignant neoplasm of breast in July 2024. The patient had hospital encounters in March 2024 and February 2024 for Hyperreflexia and Paresthesias respectively. 09/26/2024 Good Diaz, a female patient with a history of anxiety and sleep issues, reports improvement in her symptoms with current medication regimen but experiences some work-related stress and difficulty falling asleep. Attention Deficit Hyperactivity Disorder (ADHD) Assessment: Patient reports significant improvement with atomoxetine 50 mg daily. She notes increased motivation to complete tasks and no side effects such as palpitations. However, she mentions experiencing muscle tension, particularly in her legs, which may be related to stress rather than medication side effects. Plan: - Continue atomoxetine 50 mg PO daily - Increase prescription to 90-day supply Anxiety Assessment: Patient's anxiety symptoms appear to be well-managed with current medication regimen. She demonstrates improved coping skills in handling work-related stress, showing ability to recognize and manage stressful situations more effectively than in the past. Plan: - Continue vilazodone (dosage not specified) with 90-day supply - Encourage ongoing use of stress-reductio n techniques and self-awareness strategies Insomnia Assessment: Patient reports recent difficulty falling asleep. She independently increased her trazodone dose from 50 mg to 75 mg over the weekend, which seemed to help. Plan: - Trazodone 50 mg PO at bedtime, with option to take an additional half tablet (25 mg) as needed - Prescribe 135 tablets to allow for flexible dosing - Patient to monitor sleep quality and adjust dosage between 50-75 mg as needed Medication Management Assessment: Patient expresses concern about medication costs, particularly noting a high light for vilazodone. This requires clarification with the pharmacy. Plan: - Update prescriptions to 90-day supply for cost-effectiven ess - Advise patient to discuss pricing discrepancies with the pharmacy, particularly regarding vilazodone - Follow up in 3 months for medication review and prescription renewals Disclaimer: This note has been transcribed using speech recognition software and serves as a reflection of the patient's visit. While efforts have been made to ensure accuracy, there may be errors, including stocking and box shop supervisor inaccuracies and misspellings of medication names. This document should not be considered a verbatim record, and any discrepancies should be verified with the provider. 06/24/2024 Other Electronic Prior Authorization was requested for Atomoxetine HCl 25 MG Capsule. Provider can order medication once approval received. Plan Of Treatment No Information Insurance Providers Payer Name Payer Address Payer Phone Subscriber Number Group Number Insured Name Patient Relationship to Insured Coverage Start Date Coverage End Date r [address] [address] [place] [phone] [id number] CAPRI CASIANO Self - patient is the insured 4 [facility] [address] [address] [place] [address] [id number] CAMI Young CAPRI Self - patient is the insured 5 Medical (General) History Medical History History ICD Code Problems: Adult attention deficit hypera ctivity disorder Chronic post-traumatic stress disorder Generalized anxiety disorder Inappropriate sinus tachycardia Moderate recurrent major depression Nicotine dependence Primary insomnia Imported from [place]: CT HEART DIAG CALCIUM SCORE - Performed on 2023-10-07 Interpretation: Total Score: 0 No plaque, very low risk, very unlikely for probability of significant CAD Imported from [place]: MR I BRAIN WO CON - Performed on 2024-03-09 Interpretation: No acute or significant intracranial abnormality. MRI CERV SPINE WWO CON - Performed on 2024-04-12 Interpretation: No significant abnormality is demonstrated. Major depressive disorder, recurrent Attention-deficit hyperactivity disorder Surgical History Surgery Date(Month/Year) Endometrial ablation (60491) 05/18/2014 Removal of gallbladder (63672) 3 Hysterectomy (93490) 04/30/2018 Any surgical history 04/30/2018
--- OUTSIDE RECORDS SUMMARY | 2025-04-05 15:17 | XMS_ITS | Patient Health Record ---
Author Organization [facility] [place] ([address]) Address [address] [place] [address] Care Team Providers Care Delivery Agent Name Role Phone Christine Alas Primary Care Provider Pam Newby Unavailable [phone] Allergies Allergen (clinical drug ingredient) Drug/Non Drug Allergy documented on EMR Reaction Allergy Type Onset Date Status Dispurse blue mix 124/106 (uncoded) Atopic eczema Allergy Active Lyral Lyral (uncoded) Atopic Eczema Allergy Active p-phenylenediamine P-phenylenediamine (uncoded) Atopic eczema Allergy Active Propis (uncoded) Atopic eczema Allergy Active Reason For Referral No Information Medications Medication SIG (Take, Route, Frequency, Duration) Notes Start Date End Date Status Adderall XR 10 MG 1 capsule in the mor lawson Orally Once a day Active Dupixent 300 MG/2ML as directed Subcutaneous Active traZODone HCl 50 MG Oral; Duration: 30 Days Active Vilazodone HCl 40 MG 1 tablet with food Orally Once a day Active Minoxidil 2.5 MG 1 tablet Orally Twic e a day Active Cetirizine HCl 10 MG 1 tablet Orally Once a day Active Cetirizine HCl 10 MG 1 tablet Orally Twi ce a day; Duration: 30 days Active Flonase Allergy Relief 50 MCG/ACT 1 spray in each nostril Nasally Once a day Active Pepcid 40 MG 1 tablet Orally Once a day Active Montelukast Sodium 10 MG 1 tablet Orally at night; Duration: 90 days Active Famotidine 20 MG 1 tablet Orally Twic e a day; Duration: 30 days Active Omeprazole 40 MG 1 capsule 1/2 to 1 h our before morning meal Orally Once a day Active Ivabradine HCl 5 MG 1 tablet with meals Orally Twice a day Active Minocycline HCl 100 MG 1 capsule Orally Once a day Active Immunizations Vaccine Route Administration Date Status Comme nts NOC Tdap Unknown 12/02/2019 Administered Portal Jasonr rod Social History Tobacco Use: Social History Observation Description Date Details (start date - stop date) Never Smoker NA - NA Tobacco Control (Standard) Question Answer Notes Tobacco use: Nonsmoker Problems Problem Type SNOMED Code ICD Code Onset Dates Problem Status W/U Status Risk Notes Problem Chronic allergic conjunctivitis (88559646) Other chronic allergic conjunctivitis (H10.45) Active confirmed Problem Allergic rhinitis caused by pollen (disorder) (23283554) Allergic rhinitis due to pollen (J30.1) Active confirmed Problem Allergic rhinitis (04111910) Other allergic rhinitis (J30.89) Active confirmed Problem Chronic rhinitis (21368413) Chronic rhinitis (J31.0) Active confirmed Problem Hypertrophy of nasal turbinates (64551547) Hypertrophy of nasal turbinates (J34.3) Active confirmed Problem Uncomplicated mild persistent asthma (010461265) Mild persistent asthma, uncomplicated (J45.30) Active confirmed Problem Uncomplicated moderate persistent asthma (729559881) Moderate persistent asthma, uncomplicated (J45.40) Active confirmed Problem Uncomplicated severe persistent asthma (735457546) Severe persistent asthma, uncomplicated (J45.50) Active confirmed Problem Allergic rhinitis caused by animal hair and dander (719588811388749) Allergic rhinitis due to animal (cat) (dog) hair and dander (J30.81) Active confirmed Problem Eruption of skin (948632332) Rash and other nonspecific skin eruption (R21) Active confirmed Problem Urticaria (949938883) Other urticaria (L50.8) Active confirmed Problem Dysphagia (22641245) Dysphagia, unspecified (R13.10) Active confirmed Vital Signs Oximetry 98 % 04/21/2024 Blood pressure diastolic 88 mm Hg 04/21/2024 Height 66 in 04/21/2024 Blood pressure systolic 129 mm Hg 04/21/2024 Weight 142 lbs 04/21/2024 BMI 22.92 kg/m2 04/21/2024 Encounters Encounter Location Date Provider Diagnosis [facility] [address] [place] [address] 04/21/2024 Pam Marte Other urticaria L50. 8 ; Rash and other nonspecific skin eruption R21 ; Dysphagia, unspecified R13.10 ; Allergic rhinitis due to animal (cat) (dog) hair and dander J30.81 ; Other allergic rhinitis J30.89 and Dermatitis due to ingested food L27.2 [facility] [place] [address] [place] [address] 04/07/2024 Pam Marte Other urticaria L50. 8 Assessments Encounter Date Diagnosis (ICD Code) Assessment Notes Treatment Notes Treatment Clinical Notes Section Notes 04/07/2024 Other urticaria (ICD-10 - L50.8) 04/21/2024 Rash and other nonspecific skin eruption (ICD-10 - R21) Sonja returns doing well. She is already followed by [facility] and started Dupixent in May 2023. Although has seen clear improvement in her skin she still is dealing with scalp itching and irritation. When entering rooms with fragrance she feels she has an immediate reaction and is wondering if there is any additional treatment. -Last visit I discussed that fragrance allergy, like most contact reaction are a delayed T-cell mediated. I'm wondering if part of her reaction is psychosomatic. Regardless if it bother her I would try to minimize contact with places that have fragrance. -She had extensive patch testing done; [facility] has the same panel of 87 chemicals as we do. Continue avoidance of known triggers. Using Vanicream products with benefit. -She is diffusely dry so I went over some basic eczema measures she isn't doing in her day to day life. She needs to take a daily bath when skin is flaring. Reviewed [id number] technique. Also needs to increase moisturizing throughout the day. Only using Vanicream at night. 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 Has not implemented these changes- reviewed again today -She is trying to avoid topical steroids and believes she failed Eucrisa and Elidel. -Slated to see Derm for f/u -Return off Trazadone for skin testing 04/21/2024 Other urticaria (ICD-10 - L50.8) Sonja reports a lifelong history of random hives.She does not have any pictures outside of her hand redness. -Recommend taking pictures and high dose H1/H2 blockers. Stopped Singulair due to mood changes. -Labs were checked for underlying thryoid mast cell and autoimmune conditions- all normal -Continue current regimen, take pictures of future breakouts. Consider Xolair 04/21/2024 Dysphagia, unspecified (ICD-10 - R13.10) Slated to see GI - likely will have EGD 04/21/2024 Allergic rhinitis due to animal (cat) (dog) hair and dander (ICD-10 - J30.81) ImmunoCaps positive to dust mites, dog, and cockroach -Discussed avoidance measures. Just got new pillow -Interested in returning off Trazadone x 2-3 weeks as well as anthistamines for skin testing. If hives flare will need to hold off 04/21/2024 Other allergic rhinitis (ICD-10 - J30.89) see plan above 04/21/2024 Dermatitis due to ingested food (ICD-10 - L27.2) Sonja's symptoms of oral itching from eating veggies and fruits appear clinically consistent with oral allergy syndrome, a mild form of IgE-mediated allergy due to cross-reactivity between food allergens and pollens rather than an allergy to the actual food. Only in rare cases does OAS evolve into food anaphylaxis, so carrying EAI device generally not necessary. As in his/her case, the cooked, extensively peeled/washed and/or processed forms of these foods can be eaten without symptoms. There are numerous case reports of improvement in OAS symptoms in patients undergoing immunotherapy to the cross-reactive pollens. 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
== END 2025-04-05 11:14 | disposition home or self-care (01) ==
PROVIDERS: Emergency Provider Nurse Practitioner Family; PCP Family Medicine
DX: B34.9 Viral infection, unspecified (principal); J06.9 Acute upper respiratory infection, unspecified; F17.210 Nicotine dependence, cigarettes, uncomplicated; N80.9 Endometriosis, unspecified; F32.A Depression, unspecified
CPT/HCPCS: 87426; 87804; 99212; G0463